=== PATIENT | female | born 1925 | race African-American/Black ===

== ENCOUNTER 2016-08-02 11:55 | Emergency (ER) | payer MEDICARE, MEDICAID ==
--- NOTE | 2016-08-02 12:17 | ER Document Report ---
ED Medical Screen (RME) - General Stated Complaint: SWELLING RIGHT SIDE OF NECK Time seen by provider: 12:16 Mode of Arrival: Ambulatory Information source: Patient Notes: 89-year-old female presents to ED for swollen to the right side of her neck since this morning when she took a shower. Denies any difficulty swallowing or breathing. States the side of her neck hurts and is swollen. States she does not remember ever having this in the past. She does have a problem with her thyroid and takes a thyroid pill not sure which one. I have greeted and performed a rapid initial assessment of this patient. A comprehensive ED assessment and evaluation of the patient, analysis of test results and completion of medical decision making process will be conducted by an additional ED providers. TRAVEL OUTSIDE OF THE [place] IN LAST 30 DAYS: No - Related Data Allergies/Adverse Reactions: levofloxacin [From Levaquin] Allergy (Verified 12/12/12 14:49) Past Medical History - Past Medical History Cardiac Medical History: Reports: Hx Hypercholesterolemia, Hx Hypertension Denies: Hx Atrial Fibrillation, Hx Congestive Heart Failure, Hx Coronary Artery Disease, Hx Heart Attack, Hx Peripheral Vascular Disease, Hx Heart Murmur Pulmonary Medical History: Reports: Hx Tuberculosis Neurological Medical History: Denies: Hx Seizures Endocrine Medical History: Reports: Hx Hypothyroidism Renal/ Medical History: Denies: Hx End Stage Renal Disease GI Medical History: Denies: Hx Crohn's Disease, Hx Gastroesophageal Reflux Disease, Hx Hiatal Hernia, Hx Irritable Bowel, Hx Liver Failure, Hx Ulcer Psychiatric Medical History: Reports: Hx Dementia Past Surgical History: Reports: Hx Bowel Surgery - removal of small bowels, Hx Cholecystectomy, Hx Hysterectomy. Denies: Hx Appendectomy, Hx Section , Hx Colostomy, Hx Coronary Artery Bypass Graft, Hx Gastric Bypass Surgery, Hx Herniorrhaphy, Hx Mastectomy, Hx Pacemaker, Hx Tonsillectomy, Hx Tubal Ligation - Immunizations Hx Diphtheria, Pertussis, Tetanus Vaccination: Yes
--- NOTE | 2016-08-02 13:24 | ER Document Report ---
HPI - HPI Patient complains to provider of: neck swelling Pain Level: Denies Context: patient is an 89 year old female who presents c/o right neck swelling since this AM. this am she showered and noticed that she had pain underneath her right jaw with movement and to palpation. her duaghter is present and giving majority of the information because her mother has dementia. Her daughter states she has had mild cold symptoms over the past couple of days, many sinus drainage and light dry cough. Denies any ear pain, purulent nasal drainage, dysphagia, muffled speech or drooling, productive cough, SOB, dyspnea, chest pain. Tolerating PO, enjoying normal diet. PMH: hypothyroidism, HTN, dementia PSH: daughter unaware but denies any ENT procedures SH: former smoker, no etoh or drug use PCP: Dr. Rodriguez - CARDIOVASCULAR Cardiovascular: DENIES: Chest pain - RESPIRATORY Respiratory: DENIES: Trouble Breathing, Coughing - REPRODUCTIVE Reproductive: REPORTS: Postmenopausal. DENIES: : - MUSCULOSKELETAL Musculoskeletal: REPORTS: Neck Pain. DENIES: Extremity pain, Back Pain, Swelling - DERM Skin Color: Normal Past Medical History - General Information source: Patient - Social History Smoking Status: Unknown if Ever Smoked Chew tobacco use (# tins/day): No Frequency of alcohol use: None Drug Abuse: None Family History: Reviewed & Not Pertinent Patient has suicidal ideation: No Patient has homicidal ideation: No - Past Medical History Cardiac Medical History: Reports: Hx Hypercholesterolemia, Hx Hypertension Denies: Hx Atrial Fibrillation, Hx Congestive Heart Failure, Hx Coronary Artery Disease, Hx Heart Attack, Hx Peripheral Vascular Disease, Hx Heart Murmur Pulmonary Medical History: Reports: Hx Tuberculosis Neurological Medical History: Denies: Hx Seizures Endocrine Medical History: Reports: Hx Hypothyroidism Renal/ Medical History: Denies: Hx End Stage Renal Disease, Hx Peritoneal Dialysis GI Medical History: Denies: Hx Crohn's Disease, Hx Gastroesophageal Reflux Disease, Hx Hiatal Hernia, Hx Irritable Bowel, Hx Liver Failure, Hx Ulcer Psychiatric Medical History: Reports: Hx Dementia Past Surgical History: Reports: Hx Bowel Surgery - removal of small bowels, Hx Cholecystectomy, Hx Hysterectomy. Denies: Hx Appendectomy, Hx Section , Hx Colostomy, Hx Coronary Artery Bypass Graft, Hx Gastric Bypass Surgery, Hx Herniorrhaphy, Hx Mastectomy, Hx Pacemaker, Hx Tonsillectomy, Hx Tubal Ligation - Immunizations Hx Diphtheria, Pertussis, Tetanus Vaccination: Yes Hx Pneumococcal Vaccination: 04/13/12 Vertical Provider Document - CONSTITUTIONAL Agree With Documented VS: Yes Exam Limitations: No Limitations General Appearance: WD/WN, No Apparent Distress - INFECTION CONTROL TRAVEL OUTSIDE OF THE [place] IN LAST 30 DAYS: No - HEENT HEENT: Atraumatic, Normocephalic, PERRLA. negative: Dental Injury, Pharyngeal Exudate, Pharyngeal Tenderness, Pharyngeal Erythema, Tympanic Membrane Red, Tympanic Membrane Bulging - NECK Neck: Supple, Thyroid Normal - abnormal inspection, evidence of fullness of the right neck, no erythema. mild tenderness to palpation but soft, moble LN that is mildly enlarged., Other - RESPIRATORY Respiratory: Breath Sounds Normal, No Respiratory Distress, Chest Non-Tender O2 Sat by Pulse Oximetry: 94 - CARDIOVASCULAR Cardiovascular: Regular Rate, Regular Rhythm, No Murmur Pulses: Normal: Radial - NEURO Level of Consciousness: Awake, Alert, Appropriate Motor/Sensory: No Motor Deficit, No Sensory Deficit Course - Re-evaluation Re-evalutation: 08/02/16 13:54 Patient is a 21-year-old female who is hemodynamically stable, no acute distress , afebrile with evidence of right lymphadenopathy consistent with her history of a recent cold. Educated family to use warm packs as tolerated for comfort and Tylenol for pain and can follow-up with Dr. Rodriguez with her scheduled appointment at the end of the month. - Vital Signs Vital signs: Temp Pulse Resp BP Pulse Ox 98.0 F 60 25 H 115/55 L 94 08/02/16 12:05 08/02/16 12:05 08/02/16 12:05 08/02/16 12:05 08/02/16 12:05 Discharge - Discharge Clinical Impression: Lymphadenopathy of head and neck Condition: Good Disposition: HOME, SELF-CARE Instructions: Lymphadenopathy ([facility]), Acetaminophen Referrals: ZORA RODRIGUEZ MD [ACTIVE STAFF] - Follow up as needed
[2016-08-02] MEDS ORDERED: ACETAMINOPHEN 325 MG TABLET PO ONE (13:33)
[2016-08-02 13:44] VITALS: BP 122/59
== END 2016-08-02 13:55 | disposition home or self-care (01) ==
LOC: ER 11:55
DX: R59.0 Localized enlarged lymph nodes (principal); M54.2 Cervicalgia; F03.90 Unspecified dementia, unspecified severity, without behavioral disturbance, psychotic disturbance, mood disturbance, and anxiety; R05 Cough; J34.89 Other specified disorders of nose and nasal sinuses; I10 Essential (primary) hypertension; Z87.891 Personal history of nicotine dependence; Z86.11 Personal history of tuberculosis
CPT/HCPCS: 99283; A9270

== ENCOUNTER 2016-11-05 17:20 | Inpatient (IN) | payer MEDICARE, MEDICAID ==
[2016-11-05] MEDS ORDERED: IPRATROPIUM/ALBUTEROL 0.5-2.5 MG/3 ML AMPUL NEB ONE ×2 (19:02)
--- NOTE | 2016-11-05 19:03 | ER Document Report ---
ED Medical Screen (RME) - General Chief Complaint: Congestion Stated Complaint: COUGH Mode of Arrival: Wheelchair Information source: Patient Notes: 89-year-old female presents with 4 day duration of cough shortness of breath. Patient denies any fevers denies any previous episodes of pneumonia. I have greeted and performed a rapid initial assessment of this patient. A comprehensive ED assessment and evaluation of the patient, analysis of test results and completion of the medical decision making process will be conducted by additional ED providers. PHYSICAL EXAMINATION: GENERAL: Elderly female no acute distress HEAD: Atraumatic, normocephalic. EYES: Pupils equal round extraocular movements intact, conjunctiva are normal. ENT: Nares patent NECK: Normal range of motion LUNGS: Coarse end expiratory wheezing bilateral lower lobes Musculoskeletal: Normal range of motion NEUROLOGICAL: Normal speech, normal gait. PSYCH: Normal mood, normal affect. SKIN: Warm, Dry, normal turgor, no rashes or lesions noted. TRAVEL OUTSIDE OF THE [place] IN LAST 30 DAYS: No - Related Data Allergies/Adverse Reactions: levofloxacin [From Levaquin] Allergy (Verified 11/05/16 18:51) Past Medical History - Past Medical History Cardiac Medical History: Reports: Hx Hypercholesterolemia, Hx Hypertension Denies: Hx Atrial Fibrillation, Hx Congestive Heart Failure, Hx Coronary Artery Disease, Hx Heart Attack, Hx Peripheral Vascular Disease, Hx Heart Murmur Pulmonary Medical History: Reports: Hx Tuberculosis Neurological Medical History: Denies: Hx Seizures Endocrine Medical History: Reports: Hx Hypothyroidism Renal/ Medical History: Denies: Hx End Stage Renal Disease, Hx Peritoneal Dialysis GI Medical History: Denies: Hx Crohn's Disease, Hx Gastroesophageal Reflux Disease, Hx Hiatal Hernia, Hx Irritable Bowel, Hx Liver Failure, Hx Ulcer Psychiatric Medical History: Reports: Hx Dementia Past Surgical History: Reports: Hx Bowel Surgery - removal of small bowels, Hx Cholecystectomy, Hx Hysterectomy. Denies: Hx Appendectomy, Hx Section , Hx Colostomy, Hx Coronary Artery Bypass Graft, Hx Gastric Bypass Surgery, Hx Herniorrhaphy, Hx Mastectomy, Hx Pacemaker, Hx Tonsillectomy, Hx Tubal Ligation - Immunizations Hx Diphtheria, Pertussis, Tetanus Vaccination: Yes Physical Exam - Vital signs Vitals: Temp Pulse Resp BP Pulse Ox 98.3 F 59 L 20 114/56 L 97 11/05/16 17:47 11/05/16 17:47 11/05/16 17:47 11/05/16 17:47 11/05/16 17:47 Course - Vital Signs Vital signs: Temp Pulse Resp BP Pulse Ox 98.3 F 59 L 20 114/56 L 97 11/05/16 17:47 11/05/16 17:47 11/05/16 17:47 11/05/16 17:47 11/05/16 17:47
[2016-11-05 19:47] LABS: ABSOLUTE BASOPHILS # (AUTO) 0.1 10^3/uL (0.0-0.2); ABSOLUTE EOSINOPHILS # (AUTO) 0.1 10^3/uL (0.0-0.6); ABSOLUTE MONOCYTES (AUTO) 0.8 10^3/uL (0.1-1.4); ABSOLUTE NEUT (AUTO) 5.6 10^3/uL (1.7-8.2); EOSINOPHILS % (AUTO) 1.3 % (0-6); HEMATOCRIT 36.1 % (36.0-47.0); HEMOGLOBIN 11.8 g/dL (12.0-15.5); HGB HCT DIFFERENCE -0.7; LYMPHOCYTES % (AUTO) 13.1 % (13-45); MEAN CORPUSCULAR HEMOGLOBIN 30.4 pg (27.0-33.4); MEAN CORPUSCULAR HGB CONC 32.7 g/dL (32.0-36.0); MEAN CORPUSCULAR VOLUME 93 fl (80-97); MONOCYTES % (AUTO) 10.5 % (3-13); RED BLOOD COUNT 3.88 10^6/uL (3.72-5.28); RED CELL DISTRIBUTION WIDTH 14.2 % (11.5-14.0); SEGMENTED NEUTROPHILS % (AUTO) 74.1 % (42-78); WHITE BLOOD COUNT 7.6 10^3/uL (4.0-10.5)
[2016-11-05 20:01] LABS: ALANINE AMINOTRANSFERASE 22 U/L (9-52); ALBUMIN 3.9 g/dL (3.5-5.0); ALKALINE PHOSPHATASE 58 U/L (38-126); ANION GAP 16 (5-19); ASPARTATE AMINO TRANSFERASE 18 U/L (14-36); BILIRUBIN,DIRECT 0.4 mg/dL (0.0-0.4); BILIRUBIN,TOTAL 0.6 mg/dL (0.2-1.3); BLOOD UREA NITROGEN 18 mg/dL (7-20); CALCIUM 9.1 mg/dL (8.4-10.2); CARBON DIOXIDE 20 mmol/L (22-30); CHLORIDE 109 mmol/L (98-107); CREATININE RESULT 1.19 mg/dL (0.52-1.25); GLUCOSE 97 mg/dL (75-110); POTASSIUM 3.9 mmol/L (3.6-5.0); TOTAL PROTEIN 7.5 g/dL (6.3-8.2)
[2016-11-05] MEDS ORDERED: CEFTRIAXONE RTU 1 GM/D5W 50 ML IV ONE (21:40)
[2016-11-05] MEDS ORDERED: AZITHROMYCIN INJ 500 MG VIAL IV ONE (21:40)
--- NOTE | 2016-11-05 21:43 | ER Document Report ---
ED Respiratory Problem - General Chief Complaint: Congestion Stated Complaint: COUGH Time seen by provider: 21:42 Mode of Arrival: Wheelchair Information source: Patient TRAVEL OUTSIDE OF THE [place] IN LAST 30 DAYS: No - HPI Patient complains to provider of: Cough, Short of breath Onset: Other - 4 days Duration: Worse/persistent Short of Breath: Moderate Chest pain/discomfort: Tightness Cough: Productive Sputum amount: Small Sputum color: Yellow Sputum consistency: Mucoid Associated symptoms: Congestion, Cough, Short of breath Notes: Patient is an 89-year-old female who presents to the emergency room complaining of cough cold congestion 4 days with difficulty breathing that's been worsening , she has not had a fever at home, cough is productive of a small amount of yellowish mucoid, she has not been on any antibiotics recently, no recent long distance travel - Related Data Allergies/Adverse Reactions: levofloxacin [From Levaquin] Allergy (Verified 11/05/16 18:51) Past Medical History - General Information source: Patient - Social History Smoking Status: Unknown if Ever Smoked Family History: Reviewed & Not Pertinent Patient has suicidal ideation: No Patient has homicidal ideation: No - Past Medical History Cardiac Medical History: Reports: Hx Hypercholesterolemia, Hx Hypertension Denies: Hx Atrial Fibrillation, Hx Congestive Heart Failure, Hx Coronary Artery Disease, Hx Heart Attack, Hx Peripheral Vascular Disease, Hx Heart Murmur Pulmonary Medical History: Reports: Hx Tuberculosis Neurological Medical History: Denies: Hx Seizures Endocrine Medical History: Reports: Hx Hypothyroidism Renal/ Medical History: Denies: Hx End Stage Renal Disease, Hx Peritoneal Dialysis GI Medical History: Denies: Hx Crohn's Disease, Hx Gastroesophageal Reflux Disease, Hx Hiatal Hernia, Hx Irritable Bowel, Hx Liver Failure, Hx Ulcer Psychiatric Medical History: Reports: Hx Dementia Past Surgical History: Reports: Hx Bowel Surgery - removal of small bowels, Hx Cholecystectomy, Hx Hysterectomy. Denies: Hx Appendectomy, Hx Section , Hx Colostomy, Hx Coronary Artery Bypass Graft, Hx Gastric Bypass Surgery, Hx Herniorrhaphy, Hx Mastectomy, Hx Pacemaker, Hx Tonsillectomy, Hx Tubal Ligation - Immunizations Hx Diphtheria, Pertussis, Tetanus Vaccination: Yes Hx Pneumococcal Vaccination: 04/13/12 Review of Systems - Review of Systems Constitutional: No symptoms reported EENT: No symptoms reported Cardiovascular: No symptoms reported Respiratory: See HPI Gastrointestinal: No symptoms reported Genitourinary: No symptoms reported Female Genitourinary: No symptoms reported Musculoskeletal: No symptoms reported Skin: No symptoms reported Hematologic/Lymphatic: No symptoms reported Neurological/Psychological: No symptoms reported -: Yes All other systems reviewed and negative Physical Exam - Vital signs Vitals: Temp Pulse Resp BP Pulse Ox 98.3 F 59 L 20 114/56 L 97 11/05/16 17:47 11/05/16 17:47 11/05/16 17:47 11/05/16 17:47 11/05/16 17:47 Interpretation: Bradycardic - General General appearance: Alert In distress: None - HEENT Head: Normocephalic, Atraumatic Eyes: Normal Pupils: PERRL Mouth/Lips: Normal Mucous membranes: Normal Pharynx: Normal - Respiratory Respiratory status: No respiratory distress Chest status: Nontender Breath sounds: Productive cough, Rhonchi, Wheezing Chest palpation: Normal - Cardiovascular Rhythm: Regular Heart sounds: Normal auscultation Murmur: No - Abdominal Inspection: Normal Distension: No distension Bowel sounds: Normal Tenderness: Nontender Organomegaly: No organomegaly - Back Back: Normal, Nontender - Extremities General upper extremity: Normal inspection, Nontender, Normal color, Normal ROM , Normal temperature General lower extremity: Normal inspection, Nontender, Normal color, Normal ROM , Normal temperature, Normal weight bearing. No: Anayeli's sign - Neurological Neuro grossly intact: Yes Cognition: Normal Orientation: AAOx4 [place] Coma Scale Eye Opening: Spontaneous [place] Coma Scale Verbal: Oriented [place] Coma Scale Motor: Obeys Commands [place] Coma Scale Total: 15 Speech: Normal Motor strength normal: LUE, RUE, LLE, RLE Sensory: Normal - Psychological Associated symptoms: Normal affect, Normal mood - Skin Skin Temperature: Warm Skin Moisture: Dry Skin Color: Normal Course - Re-evaluation Re-evalutation: 11/05/16 21:44 Patient discussed with primary care provider, Dr. Bermudez who agrees with admission - Vital Signs Vital signs: Temp Pulse Resp BP Pulse Ox 98.3 F 59 L 20 114/56 L 97 11/05/16 17:47 11/05/16 17:47 11/05/16 17:47 11/05/16 17:47 11/05/16 17:47 - Laboratory Result Diagrams: 11/05/16 19:15 11/05/16 19:15 Laboratory results interpreted by me: 11/05/16 11/05/16 19:15 19:15 Hgb 11.8 L RDW 14.2 H Chloride 109 H Carbon Dioxide 20 L Est GFR ( Amer) 52 L Est GFR (Non-Af Amer) 43 L - Diagnostic Test Radiology reviewed: Image reviewed, Reports reviewed - EKG Interpretation by Me EKG shows normal: Sinus rhythm Rate: Normal Rhythm: NSR - Transfer of Care Care transferred to following provider: Dr. Bermudez Discharge - Discharge Clinical Impression: Pneumonia Qualifiers: Pneumonia type: due to unspecified organism Laterality: right Lung location: lower lobe of lung Qualified Code(s): J18.1 - Lobar pneumonia, unspecified organism Condition: Stable Disposition: ADMITTED INPATIENT Admitting Provider: Aidan Unit Admitted: Medical Floor
--- NOTE | 2016-11-05 22:17 | EKG REPORT ---
SEVERITY:- ABNORMAL ECG - SINUS RHYTHM ABNRM R PROG, CONSIDER ASMI OR LEAD PLACEMENT NONSPECIFIC T ABNORMALITIES, ANT-LAT LEADS : Confirmed by: Clifford Lo 05-Nov-2016 22:16:26
[2016-11-06] MEDS ORDERED: ACETAMINOPHEN 325 MG TABLET PO PRN (07:57)
[2016-11-06] MEDS ORDERED: GUAIFENESIN SYRP 200 MG/10 ML UDC PO PRN (07:57)
[2016-11-06] MEDS ORDERED: DONEPEZIL HCL 5 MG TABLET PO SCH (10:00)
[2016-11-06] MEDS ORDERED: DONEPEZIL HCL 10 MG PO SCH (10:00)
[2016-11-06] MEDS ORDERED: (PENDING PHARMACY ID) (Warfarin Sodium 3 MG) PO SCH (10:00)
[2016-11-06] MEDS ORDERED: METOPROLOL TARTRATE 25 MG TABLET PO SCH (10:00)
[2016-11-06] MEDS: LANSOPRAZOLE 30 MG TAB.RAP.DR PO SCH (11:47)
[2016-11-06] MEDS: NORMAL SALINE 1000 ML 1,000 ML IV PRN (11:49)
[2016-11-06] MEDS: LEVOTHYROXINE SODIUM 0.15 MG TABLET PO SCH (11:52)
[2016-11-06] MEDS: METOPROLOL TARTRATE 25 MG TABLET PO SCH ×2 (11:55→22:26)
[2016-11-06] MEDS: NIFEDIPINE 30 MG TAB.ER.24 PO SCH ×2 (11:56→22:25)
[2016-11-06] MEDS: AZITHROMYCIN 500 MG in DEXTROSE 5%-WATER 250 ML IV SCH (12:04)
[2016-11-06] MEDS: CEFTRIAXONE 1 GM/D5W RTU 1 GM/50 ML RTUPB IV SCH (13:16)
[2016-11-06] MEDS: ALBUTEROL SULFATE 0.083% NEB 2.5 MG/3 ML AMPUL NEB PRN ×2 (17:55→21:05)
--- NOTE | 2016-11-06 19:23 | PDOC H&P ---
History of Present Illness Admission Date/PCP: 11/06/16 07:50 DUDLEY CAN Patient complains of: Cough and difficulty with breathing History of Present Illness: LEXUS HELMS is a 89 year old female known to my practice who was brought by family to ED due to worsening productive cough, difficulty with breathing and chest congestion as per daughter at bedside. Patient do have history of dementia but remain fairly appropriate in simple responses. Family reported onset of her symptoms with cough and chest congestion about 4 days prior to presentation. Patient reported associated chest discomfort described as intermittent tightness in her chest. There was associated audible wheezing as per daughter's report. Daughter reported cough that has been productive of yellow mucoid sputum and noted streak of blood in phlegm prior to coming to the ED. There is no definite fever from measured temperature but daughter reported that patient has been persistently chill more than usual at home, requesting for more cover clothing. No reported nausea or vomiting. Her appetite and p.o intake remain fairly satisfactory. Family denied any similar symptoms in any family member or recent travel. Past Medical History Cardiac Medical History: Reports: Hyperlipidema, Hypertension Denies: Atrial Fibrillation, Congestive Heart Failure, Coronary Artery Disease, Myocardial Infarction, Peripheral Vascular Disease, Heart Murmur Pulmonary Medical History: Reports: Tuberculosis Neurological Medical History: Denies: Seizures Endocrine Medical History: Reports: Hypothyroidism Renal/ Medical History: Denies: End Stage Renal Disease GI Medical History: Denies: Crohn's Disease, Gastroesophageal Reflux Disease, Hiatal Hernia Psychiatric Medical History: Reports: Dementia Past Surgical History Past Surgical History: Reports: Cholecystectomy, Hysterectomy Denies: Appendectomy, Section, Colostomy, Coronary Artery Bypass Graft, Gastric Bypass Surgery, Herniorrhaphy, Mastectomy, Pacemaker, Tonsillectomy, Tubal Ligation Social History Smoking Status: Never Smoker Frequency of Alcohol Use: None Hx Recreational Drug Use: No Drugs: None Hx Prescription Drug Abuse: No - Advance Directive Resuscitation Status: Full Code Family History Family History: Reviewed & Not Pertinent Parental Family History Reviewed: Yes Children Family History Reviewed: Yes Sibling(s) Family History Reviewed.: Yes Medication/Allergy Home Medications: Metoprolol Tartrate [Lopressor 25 Mg Tablet] 12.5 mg PO BID 12/31/11 Nifedipine [Procardia XL 30 mg Tablet] 60 mg PO Q12 #0 tab.er.[id number] 11/12/12 Simvastatin 20 mg PO QHS 12/12/12 Warfarin Sodium [Coumadin 3 Mg Tablet] 3 mg PO MOWEFR 12/12/12 Donepezil HCl [Aricept] 10 mg PO DAILY 11/06/16 Levothyroxine Sodium [Synthroid 0.1 mg Tablet] 0.1 mg PO QAM 11/06/16 Warfarin Sodium [Coumadin 3 mg Tablet] 1.5 mg PO SUTUTHSA 11/06/16 Allergies/Adverse Reactions: levofloxacin [From Levaquin] Allergy (Verified 11/05/16 18:51) Review of Systems Constitutional: PRESENT: chills, weakness. ABSENT: as per HPI, anorexia, fatigue, fever(s), headache(s), night sweats, weight gain, weight loss, other Eyes: ABSENT: visual disturbances Ears: ABSENT: hearing changes Nose, Mouth, and Throat: ABSENT: as per HPI, headache(s), mouth pain, sore throat, vertigo, other Cardiovascular: ABSENT: as per HPI, chest pain, dyspnea on exertion, edema, orthropnea, palpitations, other Respiratory: PRESENT: cough, dyspnea, sputum Gastrointestinal: ABSENT: abdominal pain, constipation, diarrhea, hematemesis, hematochezia, nausea, vomiting Genitourinary: ABSENT: as per HPI, difficulty urinating, dysuria, hematuria, nocturia, other Musculoskeletal: ABSENT: as per HPI, back pain, deformity, joint swelling, muscle weakness, other Integumentary: ABSENT: as per HPI, diaphoresis, erythema, lesions, pruritus, rash, wounds, other Neurological: PRESENT: memory loss. ABSENT: as per HPI, abnormal gait, abnormal movements, abnormal speech, confusion, convulsions, dizziness, focal weakness, frequent falls, lack of coordination, numbness, paresthesias, restless legs, syncope, tingling, tremor(s), vertigo, weakness, other Psychiatric: ABSENT: anxiety, depression, homidical ideation, suicidal ideation Endocrine: ABSENT: cold intolerance, heat intolerance, polydipsia, polyuria Hematologic/Lymphatic: ABSENT: easy bleeding, easy bruising, lymphadenopathy Allergic/Immunologic: ABSENT: as per HPI, seasonal rhinorrhea, other Physical Exam Vital Signs: Temp Pulse Resp BP Pulse Ox 97.9 F 61 20 127/61 H 97 11/06/16 15:36 11/06/16 16:41 11/06/16 15:36 11/06/16 15:36 11/06/16 15:36 General appearance: PRESENT: no acute distress, cooperative, hard of hearing Head exam: PRESENT: atraumatic, normocephalic Eye exam: PRESENT: conjunctiva pink, EOMI, PERRLA. ABSENT: scleral icterus Ear exam: PRESENT: normal external ear exam Mouth exam: PRESENT: moist, tongue midline Teeth exam: ABSENT: dental caries, dental tenderness, edentulous, poor dentation , other Throat exam: ABSENT: post pharyngeal erythema, tonsillar erythema, tonsillar exudate, tonsillogmegaly, other Neck exam: PRESENT: full ROM. ABSENT: carotid bruit, JVD, lymphadenopathy, thyromegaly Respiratory exam: PRESENT: crackles, decreased breath sounds - bilaterally, rhonchi - very minimal expiratory phase Cardiovascular exam: PRESENT: RRR. ABSENT: diastolic murmur, rubs, systolic murmur Pulses: PRESENT: normal dorsalis pedis pul, +2 pedal pulses bilateral Vascular exam: PRESENT: normal capillary refill GI/Abdominal exam: PRESENT: normal bowel sounds, soft. ABSENT: distended, guarding, mass, organolmegaly, rebound, tenderness Rectal exam: PRESENT: deferred Extremities exam: PRESENT: full ROM Musculoskeletal exam: PRESENT: ambulatory - prior to her current illness, deformity - related to multiple joints involvement with arthritis Neurological exam: PRESENT: alert, awake, oriented to person, oriented to place , CN II-XII grossly intact. ABSENT: motor sensory deficit Psychiatric exam: PRESENT: appropriate affect, normal mood. ABSENT: homicidal ideation, suicidal ideation Skin exam: PRESENT: dry, intact, warm. ABSENT: cyanosis, rash Results Impressions: Chest X-Ray 11/05/16 19:02 IMPRESSION: New patchy airspace opacity in the right lung base. Assessment & Plan - Diagnosis (1) Community acquired pneumonia Is this a current diagnosis for this admission?: YesPlan: See admitting physician orders. (2) HTN (hypertension) Qualifiers: Hypertension type: essential hypertension Qualified Code(s): I10 - Essential (primary) hypertension Is this a current diagnosis for this admission?: YesPlan: See admitting physician orders. (3) HLD (hyperlipidemia) Qualifiers: Hyperlipidemia type: pure hypercholesterolemia Qualified Code(s): E78.00 - Pure hypercholesterolemia, unspecified; E78.0 - Pure hypercholesterolemia Is this a current diagnosis for this admission?: YesPlan: See admitting physician orders. (4) Senile dementia of Alzheimer's type Is this a current diagnosis for this admission?: YesPlan: See admitting physician orders. (6) Osteoarthritis involving multiple joints on both sides of body Is this a current diagnosis for this admission?: YesPlan: See admitting physician orders. - Time Time Spent: 50 to 70 Minutes Medications reviewed and adjusted accordingly: Yes Anticipated discharge: Home with Homehealth - Inpatient Certification Medical Necessity: Need Close Monitoring Due to Risk of Patient Decompensation, Need For IV Fluids, Need For Continuous Telemetry Monitoring, Need for Nebulizer Therapy and Monitoring of Response, Need for Pain Control, Risk of Complication if Not Cared For in Hospital Post Hospital Care: D/C Bias Binding Cutter Documentation - Plan Summary Plan Summary: See admitting physician orders.
[2016-11-06 21:05] LABS: APPEARANCE,URINE SLIGHTLY-CLOUDY; BILIRUBIN,URINE NEGATIVE (NEGATIVE); GLUCOSE, URINE NEGATIVE (NEGATIVE); KETONES,URINE NEGATIVE (NEGATIVE); LEUKOCYTE ESTERASE,URINE SMALL (NEGATIVE); NITRITE,URINE NEGATIVE (NEGATIVE); PROTEIN,URINE NEGATIVE (NEGATIVE); URINE SPECIFIC GRAVITY 1.004; UROBILINOGEN,URINE NEGATIVE mg/dL (<2.0)
[2016-11-06] MEDS ORDERED: (PENDING PHARMACY ID) (Simvastatin [Simvastatin] 20 MG) PO SCH (22:00)
[2016-11-06] MEDS ORDERED: WARFARIN SODIUM 3 MG TABLET PO SCH (22:00)
[2016-11-06] MEDS: SIMVASTATIN 10 MG TABLET PO SCH (22:25)
[2016-11-06] MEDS: TRAZODONE HCL 50 MG TABLET PO PRN (22:31)
[2016-11-07] MEDS: LANSOPRAZOLE 30 MG TAB.RAP.DR PO SCH (05:15)
[2016-11-07] MEDS: NORMAL SALINE 1000 ML 1,000 ML IV PRN (05:16)
[2016-11-07 05:22] LABS: ABSOLUTE BASOPHILS # (AUTO) 0.1 10^3/uL (0.0-0.2); ABSOLUTE EOSINOPHILS # (AUTO) 0.1 10^3/uL (0.0-0.6); ABSOLUTE MONOCYTES (AUTO) 0.8 10^3/uL (0.1-1.4); ABSOLUTE NEUT (AUTO) 5.7 10^3/uL (1.7-8.2); BASOPHILS % (AUTO) 1.1 % (0-2); EOSINOPHILS % (AUTO) 0.7 % (0-6); HEMATOCRIT 33.7 % (36.0-47.0); HEMOGLOBIN 11.1 g/dL (12.0-15.5); HGB HCT DIFFERENCE -0.4; LYMPHOCYTES % (AUTO) 13.1 % (13-45); MEAN CORPUSCULAR HEMOGLOBIN 30.2 pg (27.0-33.4); MEAN CORPUSCULAR HGB CONC 32.8 g/dL (32.0-36.0); MEAN CORPUSCULAR VOLUME 92 fl (80-97); MONOCYTES % (AUTO) 10.5 % (3-13); RED BLOOD COUNT 3.67 10^6/uL (3.72-5.28); RED CELL DISTRIBUTION WIDTH 14.1 % (11.5-14.0); SEGMENTED NEUTROPHILS % (AUTO) 74.6 % (42-78); WHITE BLOOD COUNT 7.6 10^3/uL (4.0-10.5)
[2016-11-07 05:27] LABS: PROTHROMBIN TIME 20.4 SEC (11.4-15.4)
[2016-11-07 05:39] LABS: ALANINE AMINOTRANSFERASE 24 U/L (9-52); ALBUMIN 3.5 g/dL (3.5-5.0); ALKALINE PHOSPHATASE 56 U/L (38-126); ANION GAP 14 (5-19); ASPARTATE AMINO TRANSFERASE 18 U/L (14-36); BILIRUBIN,DIRECT 0.4 mg/dL (0.0-0.4); BILIRUBIN,TOTAL 0.8 mg/dL (0.2-1.3); BLOOD UREA NITROGEN 9 mg/dL (7-20); CALCIUM 8.6 mg/dL (8.4-10.2); CARBON DIOXIDE 21 mmol/L (22-30); CHLORIDE 110 mmol/L (98-107); CREATININE RESULT 0.93 mg/dL (0.52-1.25); GLUCOSE 111 mg/dL (75-110); POTASSIUM 3.5 mmol/L (3.6-5.0); SODIUM 145.3 mmol/L (137-145); TOTAL PROTEIN 7.2 g/dL (6.3-8.2)
[2016-11-07] MEDS ORDERED: WARFARIN SODIUM 1.5 MG PO SCH (07:30)
[2016-11-07] MEDS ORDERED: LEVOTHYROXINE SODIUM 0.1 MG TABLET PO SCH (08:00)
[2016-11-07] MEDS ORDERED: POTASSIUM CHLORIDE 10 MEQ TABLET.SA PO SCH (08:00)
[2016-11-07] MEDS ORDERED: (PENDING PHARMACY ID) (Donepezil Hcl [Aricept] 10 MG) PO SCH (10:00)
[2016-11-07] MEDS: METOPROLOL TARTRATE 25 MG TABLET PO SCH ×2 (10:23→22:08)
[2016-11-07] MEDS: LEVOTHYROXINE SODIUM 0.15 MG TABLET PO SCH (10:23)
[2016-11-07] MEDS: NIFEDIPINE 30 MG TAB.ER.24 PO SCH ×2 (10:24→22:08)
[2016-11-07] MEDS: DONEPEZIL HCL 5 MG TABLET PO SCH (10:24)
[2016-11-07] MEDS: AZITHROMYCIN 500 MG in DEXTROSE 5%-WATER 250 ML IV SCH (11:14)
[2016-11-07] MEDS ORDERED: SIMETHICONE 80 MG TAB.CHEW PO PRN (12:53)
[2016-11-07] MEDS ORDERED: MAGNESIUM SULFATE/D5W 100 ML IV SCH (13:15)
[2016-11-07] MEDS ORDERED: BISACODYL 10 MG SUPP.RECT PR ONE ×2 (13:30→22:00)
[2016-11-07] MEDS: CEFTRIAXONE 1 GM/D5W RTU 1 GM/50 ML RTUPB IV SCH (14:32)
[2016-11-07] MEDS: ALBUTEROL SULFATE 0.083% NEB 2.5 MG/3 ML AMPUL NEB PRN (14:39)
[2016-11-07] MEDS ORDERED: POTASSIUM CHLORIDE 10 MEQ TABLET.SA PO ONE (15:00)
--- NOTE | 2016-11-07 18:23 | PDOC PROGRESS REPORT ---
Subjective Progress Note for:: 11/07/16 Subjective:: Patient had episode of rapid development of abdominal distension earlier today necessitating request for acute abdominal series that revealed small bowel and sigmoid colon gaseous distension. She subsequently had satisfactory bowel movement following administration of Dulcolax and some relief of abdominal pain with administration of simethicone. No nausea or vomiting. She denied any chest pain or difficulty with breathing. No fever or chills. Remain on IV Azithromycin and Ceftriaxone coverage. Physical Exam Vital Signs: Temp Pulse Resp BP Pulse Ox 97.7 F 78 30 H 140/68 H 97 11/07/16 16:33 11/07/16 16:33 11/07/16 16:33 11/07/16 16:33 11/07/16 16:33 Intake & Output 11/06/16 11/07/16 11/08/16 06:59 06:59 06:59 Intake Total 765 260 Output Total 200 200 Balance 565 60 General appearance: PRESENT: cooperative, mild distress - from elicite abdominal pain with examination. Head exam: PRESENT: atraumatic, normocephalic Eye exam: PRESENT: conjunctiva pink, EOMI, PERRLA. ABSENT: scleral icterus Mouth exam: PRESENT: moist, tongue midline Respiratory exam: PRESENT: clear to auscultation abigail, decreased breath sounds - at lung bases Cardiovascular exam: PRESENT: RRR. ABSENT: diastolic murmur, rubs, systolic murmur GI/Abdominal exam: PRESENT: distended, normal bowel sounds, tenderness - diffusely Rectal exam: PRESENT: hemorrhoids - external Extremities exam: PRESENT: full ROM Musculoskeletal exam: PRESENT: deformity Neurological exam: PRESENT: alert, awake, CN II-XII grossly intact, motor sensory deficit Psychiatric exam: PRESENT: appropriate affect, normal mood. ABSENT: homicidal ideation, suicidal ideation Results Laboratory Results: 11/07/16 05:07 11/07/16 05:07 11/06/16 11/07/16 11/07/16 20:34 05:07 05:07 WBC 7.6 RBC 3.67 L Hgb 11.1 L Hct 33.7 L MCV 92 MCH 30.2 MCHC 32.8 RDW 14.1 H Plt Count 221 Seg Neutrophils % 74.6 Lymphocytes % 13.1 Monocytes % 10.5 Eosinophils % 0.7 Basophils % 1.1 Absolute Neutrophils 5.7 Absolute Lymphocytes 1.0 Absolute Monocytes 0.8 Absolute Eosinophils 0.1 Absolute Basophils 0.1 Sodium 145.3 H Potassium 3.5 L Chloride 110 H Carbon Dioxide 21 L Anion Gap 14 BUN 9 Creatinine 0.93 Est GFR ( Amer) > 60 Est GFR (Non-Af Amer) 57 L Glucose 111 H Calcium 8.6 Magnesium Total Bilirubin 0.8 AST 18 ALT 24 Alkaline Phosphatase 56 Total Protein 7.2 Albumin 3.5 Urine Color STRAW Urine Appearance SLIGHTLY-CLOUDY Urine pH 5.0 Ur Specific [place] 1.004 Urine Protein NEGATIVE Urine Glucose (UA) NEGATIVE Urine Ketones NEGATIVE Urine Blood SMALL H Urine Nitrite NEGATIVE Ur Leukocyte Esterase SMALL H Urine WBC (Auto) 3 Urine RBC (Auto) 0 11/07/16 05:07 WBC RBC Hgb Hct MCV MCH MCHC RDW Plt Count Seg Neutrophils % Lymphocytes % Monocytes % Eosinophils % Basophils % Absolute Neutrophils Absolute Lymphocytes Absolute Monocytes Absolute Eosinophils Absolute Basophils Sodium Potassium Chloride Carbon Dioxide Anion Gap BUN Creatinine Est GFR ( Amer) Est GFR (Non-Af Amer) Glucose Calcium Magnesium 1.5 L Total Bilirubin AST ALT Alkaline Phosphatase Total Protein Albumin Urine Color Urine Appearance Urine pH Ur Specific [place] Urine Protein Urine Glucose (UA) Urine Ketones Urine Blood Urine Nitrite Ur Leukocyte Esterase Urine WBC (Auto) Urine RBC (Auto) Impressions: Chest X-Ray 11/05/16 19:02 IMPRESSION: New patchy airspace opacity in the right lung base. Acute Abdomen Series 11/07/16 00:00 IMPRESSION: There is gaseous distention of the sigmoid colon. The appearance is not classic for sigmoid volvulus but that is in the differential. This may represent ileus. Assessment & Plan - Diagnosis (1) Community acquired pneumonia Is this a current diagnosis for this admission?: YesPlan: Continue IV Ceftriaxone and Azithromycin coverage. See attending physician orders. (2) HTN (hypertension) Qualifiers: Hypertension type: essential hypertension Qualified Code(s): I10 - Essential (primary) hypertension Is this a current diagnosis for this admission?: YesPlan: See attending physician orders. (3) HLD (hyperlipidemia) Qualifiers: Hyperlipidemia type: pure hypercholesterolemia Qualified Code(s): E78.00 - Pure hypercholesterolemia, unspecified; E78.0 - Pure hypercholesterolemia Is this a current diagnosis for this admission?: YesPlan: See attending physician orders. (4) Senile dementia of Alzheimer's type Is this a current diagnosis for this admission?: YesPlan: See attending physician orders. (5) Hypothyroidism (acquired) Plan: See attending physician orders. (6) Osteoarthritis involving multiple joints on both sides of body Is this a current diagnosis for this admission?: YesPlan: See attending physician orders. (7) Hypokalemia due to inadequate potassium intake Is this a current diagnosis for this admission?: YesPlan: See attending physician orders. (8) Hypomagnesemia Is this a current diagnosis for this admission?: YesPlan: See attending physician orders. (9) Abdominal distension (gaseous) Is this a current diagnosis for this admission?: NoPlan: Patient will remain on Simethicone administration and repeat Dulcolax suppository tonight. In view of her dementia limitation and Coumadin therapy I will avoid NGT placement and manage her gaseous distension conservatively. - Time Time Spent with patient: 35 or more minutes Medications reviewed and adjusted accordingly: Yes Anticipated discharge: Home with Homehealth Within: Other - Inpatient Certification Based on my medical assessment, after consideration of the patient's comorbidities, presenting symptoms, or acuity I expect that the services needed warrant INPATIENT care.: Yes I certify that my determination is in accordance with my understanding of Medicare's requirements for reasonable and necessary INPATIENT services [42 CFR 412.3e].: Yes Medical Necessity: Need Close Monitoring Due to Risk of Patient Decompensation, Need For IV Fluids, Need For Continuous Telemetry Monitoring, Need for IV Antibiotics, Risk of Complication if Not Cared For in Hospital Post Hospital Care: D/C Property Management Accountant Documentation - Plan Summary Plan Summary: See attending physician orders. Repeat CBC with diff and BMP, Magnesium in am.
[2016-11-07] MEDS: SIMETHICONE 80 MG TAB.CHEW PO SCH (21:51)
[2016-11-07] MEDS ORDERED: WARFARIN SODIUM 3 MG TABLET PO SCH (22:00)
[2016-11-07] MEDS: SIMVASTATIN 10 MG TABLET PO SCH (22:08)
[2016-11-07] MEDS: WARFARIN SODIUM 3 MG TABLET PO SCH (22:08)
[2016-11-08] MEDS: SIMETHICONE 80 MG TAB.CHEW PO SCH ×4 (00:03→17:57)
[2016-11-08 05:56] LABS: ABSOLUTE EOSINOPHILS # (AUTO) 0.1 10^3/uL (0.0-0.6); ABSOLUTE LYMPHOCYTES (AUTO) 0.6 10^3/uL (0.5-4.7); ABSOLUTE MONOCYTES (AUTO) 0.6 10^3/uL (0.1-1.4); ABSOLUTE NEUT (AUTO) 5.6 10^3/uL (1.7-8.2); BASOPHILS % (AUTO) 0.7 % (0-2); EOSINOPHILS % (AUTO) 0.8 % (0-6); HEMATOCRIT 34.4 % (36.0-47.0); HEMOGLOBIN 11.2 g/dL (12.0-15.5); HGB HCT DIFFERENCE -0.8; LYMPHOCYTES % (AUTO) 9.1 % (13-45); MEAN CORPUSCULAR HEMOGLOBIN 30.3 pg (27.0-33.4); MEAN CORPUSCULAR HGB CONC 32.6 g/dL (32.0-36.0); MEAN CORPUSCULAR VOLUME 93 fl (80-97); MONOCYTES % (AUTO) 9.3 % (3-13); RED CELL DISTRIBUTION WIDTH 14.1 % (11.5-14.0); SEGMENTED NEUTROPHILS % (AUTO) 80.1 % (42-78); WHITE BLOOD COUNT 6.9 10^3/uL (4.0-10.5)
[2016-11-08] MEDS: LANSOPRAZOLE 30 MG TAB.RAP.DR PO SCH (05:56)
[2016-11-08 06:07] LABS: PROTHROMBIN TIME 22.3 SEC (11.4-15.4)
[2016-11-08 06:37] LABS: ANION GAP 13 (5-19); BLOOD UREA NITROGEN 8 mg/dL (7-20); CALCIUM 8.5 mg/dL (8.4-10.2); CARBON DIOXIDE 20 mmol/L (22-30); CHLORIDE 110 mmol/L (98-107); CREATININE RESULT 0.97 mg/dL (0.52-1.25); GLUCOSE 98 mg/dL (75-110); MAGNESIUM 1.9 mg/dL (1.6-2.3); POTASSIUM 4.2 mmol/L (3.6-5.0); SODIUM 142.9 mmol/L (137-145)
[2016-11-08] MEDS: ALBUTEROL SULFATE 0.083% NEB 2.5 MG/3 ML AMPUL NEB PRN ×3 (09:33→22:18)
[2016-11-08] MEDS: LEVOTHYROXINE SODIUM 0.15 MG TABLET PO SCH (10:11)
[2016-11-08] MEDS: NIFEDIPINE 30 MG TAB.ER.24 PO SCH ×2 (10:11→21:43)
[2016-11-08] MEDS: AZITHROMYCIN 250 MG TABLET PO SCH (10:11)
[2016-11-08] MEDS: METOPROLOL TARTRATE 25 MG TABLET PO SCH ×2 (10:12→21:42)
[2016-11-08] MEDS: DONEPEZIL HCL 5 MG TABLET PO SCH (10:12)
[2016-11-08] MEDS: CEFTRIAXONE 1 GM/D5W RTU 1 GM/50 ML RTUPB IV SCH (12:24)
[2016-11-08] MEDS ORDERED: NORMAL SALINE 10 ML SDV (AFTER EACH USE) IV PRN (13:20)
--- NOTE | 2016-11-08 18:40 | PDOC PROGRESS REPORT ---
Subjective Progress Note for:: 11/08/16 Subjective:: There is some improvement in her abdominal distension with several episodes of bowel movement since last clinical evaluation. Less complain of abdominal pain as per family at bedside. P.O intake remain a challenge. No nausea or vomiting. No noted chest pain or difficulty with breathing. No fever or chills. Remain on IV Azithromycin and Ceftriaxone coverage. She is schedule for PICC line establishment later this morning. Physical Exam Vital Signs: Temp Pulse Resp BP Pulse Ox 98.1 F 76 16 128/49 H 94 11/08/16 07:30 11/08/16 07:30 11/08/16 07:30 11/08/16 07:30 11/08/16 07:30 Intake & Output 11/07/16 11/08/16 11/09/16 06:59 06:59 06:59 Intake Total 765 1860 Output Total 200 200 Balance 565 1660 Physical Exam: General appearance: PRESENT: cooperative, mild distress - from elicite abdominal pain with examination. Head exam: PRESENT: atraumatic, normocephalic Eye exam: PRESENT: conjunctiva pink, EOMI, PERRLA. ABSENT: scleral icterus Mouth exam: PRESENT: moist, tongue midline Respiratory exam: PRESENT: clear to auscultation abigail, decreased breath sounds - at lung bases Cardiovascular exam: PRESENT: RRR. ABSENT: diastolic murmur, rubs, systolic murmur GI/Abdominal exam: PRESENT: distended, normal bowel sounds, tenderness - diffusely Rectal exam: PRESENT: hemorrhoids - external Extremities exam: PRESENT: full ROM Musculoskeletal exam: PRESENT: deformity Neurological exam: PRESENT: alert, awake, CN II-XII grossly intact, motor sensory deficit Psychiatric exam: PRESENT: appropriate affect, normal mood. ABSENT: homicidal ideation, suicidal ideation Results Laboratory Results: 11/08/16 05:39 11/08/16 05:39 11/07/16 11/08/16 11/08/16 05:07 05:39 05:39 WBC 6.9 RBC 3.70 L Hgb 11.2 L Hct 34.4 L MCV 93 MCH 30.3 MCHC 32.6 RDW 14.1 H Plt Count 228 Seg Neutrophils % 80.1 H Lymphocytes % 9.1 L Monocytes % 9.3 Eosinophils % 0.8 Basophils % 0.7 Absolute Neutrophils 5.6 Absolute Lymphocytes 0.6 Absolute Monocytes 0.6 Absolute Eosinophils 0.1 Absolute Basophils 0.0 Sodium 142.9 Potassium 4.2 Chloride 110 H Carbon Dioxide 20 L Anion Gap 13 BUN 8 Creatinine 0.97 Est GFR ( Amer) > 60 Est GFR (Non-Af Amer) 54 L Glucose 98 Calcium 8.5 Magnesium 1.5 L 1.9 11/06/16 11:06 Sputum Gram Stain - Final 11/06/16 11:06 Sputum Sputum Culture - Final NORMAL ADI Impressions: Chest X-Ray 11/05/16 19:02 IMPRESSION: New patchy airspace opacity in the right lung base. Acute Abdomen Series 11/07/16 00:00 IMPRESSION: There is gaseous distention of the sigmoid colon. The appearance is not classic for sigmoid volvulus but that is in the differential. This may represent ileus. Assessment & Plan - Diagnosis (1) Community acquired pneumonia Is this a current diagnosis for this admission?: YesPlan: Continue IV Ceftriaxone and Azithromycin coverage. See attending physician orders. (2) HTN (hypertension) Qualifiers: Hypertension type: essential hypertension Qualified Code(s): I10 - Essential (primary) hypertension Is this a current diagnosis for this admission?: YesPlan: See attending physician orders. (3) HLD (hyperlipidemia) Qualifiers: Hyperlipidemia type: pure hypercholesterolemia Qualified Code(s): E78.00 - Pure hypercholesterolemia, unspecified; E78.0 - Pure hypercholesterolemia Is this a current diagnosis for this admission?: YesPlan: See attending physician orders. (4) Senile dementia of Alzheimer's type Is this a current diagnosis for this admission?: YesPlan: See attending physician orders. (5) Hypothyroidism (acquired) Plan: See attending physician orders. (6) Osteoarthritis involving multiple joints on both sides of body Is this a current diagnosis for this admission?: YesPlan: See attending physician orders. (7) Hypokalemia due to inadequate potassium intake Is this a current diagnosis for this admission?: YesPlan: Resolve post replacement therapy. See attending physician orders. (8) Hypomagnesemia Is this a current diagnosis for this admission?: YesPlan: Resolve post replacement therapy. See attending physician orders. (9) Abdominal distension (gaseous) Is this a current diagnosis for this admission?: NoPlan: Continue Simethicone usage. Repeat KUB abdomen in AM. - Time Time Spent with patient: 25-34 minutes Medications reviewed and adjusted accordingly: Yes Anticipated discharge: Home with Homehealth Within: Other - Inpatient Certification Based on my medical assessment, after consideration of the patient's comorbidities, presenting symptoms, or acuity I expect that the services needed warrant INPATIENT care.: Yes I certify that my determination is in accordance with my understanding of Medicare's requirements for reasonable and necessary INPATIENT services [42 CFR 412.3e].: Yes Medical Necessity: Need Close Monitoring Due to Risk of Patient Decompensation, Need For IV Fluids, Need For Continuous Telemetry Monitoring, Need for IV Antibiotics, Risk of Complication if Not Cared For in Hospital Post Hospital Care: D/C Abalone Fisherman Documentation - Plan Summary Plan Summary: See attending physician orders. We will continue IV Azithromycin and Ceftriaxone. Obtain CBC with diff, BMP, KUB abdomen in AM. Maintain on all other current management.
[2016-11-08] MEDS: NORMAL SALINE 10 ML SDV (SCHEDULED) IV SCH (21:42)
[2016-11-08] MEDS: WARFARIN SODIUM 3 MG TABLET PO SCH (21:42)
[2016-11-08] MEDS: SIMVASTATIN 10 MG TABLET PO SCH (21:42)
[2016-11-09] MEDS: SIMETHICONE 80 MG TAB.CHEW PO SCH ×4 (00:49→17:58)
[2016-11-09] MEDS: ALBUTEROL SULFATE 0.083% NEB 2.5 MG/3 ML AMPUL NEB PRN ×3 (03:38→20:08)
[2016-11-09] MEDS: LANSOPRAZOLE 30 MG TAB.RAP.DR PO SCH (05:30)
[2016-11-09] MEDS ORDERED: LORAZEPAM INJ 2 MG/1 ML VIAL ONE (05:54)
[2016-11-09] MEDS ORDERED: LORAZEPAM INJ 2 MG/1 ML VIAL IV ONE (06:00)
[2016-11-09 06:24] LABS: PROTHROMBIN TIME 24.9 SEC (11.4-15.4)
[2016-11-09] MEDS: LEVOTHYROXINE SODIUM 0.15 MG TABLET PO SCH (09:41)
[2016-11-09] MEDS: DONEPEZIL HCL 5 MG TABLET PO SCH (09:41)
[2016-11-09] MEDS: NIFEDIPINE 30 MG TAB.ER.24 PO SCH ×2 (09:41→21:34)
[2016-11-09] MEDS: METOPROLOL TARTRATE 25 MG TABLET PO SCH ×2 (09:42→21:34)
[2016-11-09] MEDS: NORMAL SALINE 10 ML SDV (SCHEDULED) IV SCH ×2 (09:42→21:46)
[2016-11-09] MEDS: AZITHROMYCIN 250 MG TABLET PO SCH (09:42)
[2016-11-09] MEDS: CEFTRIAXONE 1 GM/D5W RTU 1 GM/50 ML RTUPB IV SCH (11:55)
--- NOTE | 2016-11-09 17:36 | PDOC PROGRESS REPORT ---
Subjective Progress Note for:: 11/09/16 Subjective:: Patient seen by the bedside she was admitted for pneumonia, she has episodes of agitation especially at night, I was called last night by the nurses requesting for lorazepam to calm her down Physical Exam Vital Signs: Temp Pulse Resp BP Pulse Ox 97.2 F 75 20 141/66 H 98 11/09/16 16:44 11/09/16 16:44 11/09/16 16:44 11/09/16 16:44 11/09/16 16:44 Intake & Output 11/08/16 11/09/16 11/10/16 06:59 06:59 06:59 Intake Total 1860 1776 250 Output Total 200 Balance 1660 1776 250 General appearance: PRESENT: no acute distress Eye exam: PRESENT: PERRLA Respiratory exam: PRESENT: rhonchi Cardiovascular exam: PRESENT: +S1, +S2 GI/Abdominal exam: PRESENT: soft Results Laboratory Results: 11/08/16 05:39 11/08/16 05:39 Impressions: Chest X-Ray 11/05/16 19:02 IMPRESSION: New patchy airspace opacity in the right lung base. Acute Abdomen Series 11/07/16 00:00 IMPRESSION: There is gaseous distention of the sigmoid colon. The appearance is not classic for sigmoid volvulus but that is in the differential. This may represent ileus. Guidance Fluoroscopy 11/08/16 00:00 IMPRESSION: SUCCESSFUL PLACEMENT OF A 5 FR DUAL LUMEN 35 CM PICC IN THE right brachial VEIN. Interventional Vascular Procedure 11/08/16 00:00 IMPRESSION: SUCCESSFUL PLACEMENT OF A 5 FR DUAL LUMEN 35 CM PICC IN THE right brachial VEIN. PICC Line Insertion 11/08/16 08:00 IMPRESSION: SUCCESSFUL PLACEMENT OF A 5 FR DUAL LUMEN 35 CM PICC IN THE right brachial VEIN. Assessment & Plan - Diagnosis (1) Community acquired pneumonia Is this a current diagnosis for this admission?: YesPlan: Continue treatment (2) Hypothyroidism (acquired) Is this a current diagnosis for this admission?: Yes (3) Senile dementia of Alzheimer's type Is this a current diagnosis for this admission?: Yes
[2016-11-09] MEDS: SIMVASTATIN 10 MG TABLET PO SCH (21:46)
[2016-11-09] MEDS: WARFARIN SODIUM 3 MG TABLET PO SCH (21:46)
[2016-11-10] MEDS: SIMETHICONE 80 MG TAB.CHEW PO SCH ×4 (00:33→19:37)
[2016-11-10] MEDS: ALBUTEROL SULFATE 0.083% NEB 2.5 MG/3 ML AMPUL NEB PRN ×3 (03:22→12:58)
[2016-11-10] MEDS: LORAZEPAM INJ 2 MG/1 ML VIAL IV PRN ×2 (05:03→16:10)
[2016-11-10] MEDS: LANSOPRAZOLE 30 MG TAB.RAP.DR PO SCH (06:01)
[2016-11-10] MEDS: NIFEDIPINE 30 MG TAB.ER.24 PO SCH ×2 (10:27→21:44)
[2016-11-10] MEDS: AZITHROMYCIN 250 MG TABLET PO SCH (10:27)
[2016-11-10] MEDS: DONEPEZIL HCL 5 MG TABLET PO SCH (10:28)
[2016-11-10] MEDS: METOPROLOL TARTRATE 25 MG TABLET PO SCH ×2 (10:28→21:44)
[2016-11-10] MEDS: LEVOTHYROXINE SODIUM 0.15 MG TABLET PO SCH (10:28)
[2016-11-10] MEDS: NORMAL SALINE 10 ML SDV (SCHEDULED) IV SCH ×2 (10:29→22:35)
[2016-11-10] MEDS: CEFTRIAXONE 1 GM/D5W RTU 1 GM/50 ML RTUPB IV SCH (12:16)
--- NOTE | 2016-11-10 18:22 | PDOC PROGRESS REPORT ---
Subjective Progress Note for:: 11/10/16 Subjective:: Patient is wheezing more today, chest x-ray showed no new change, minimal pleural effusion no new infiltrates Physical Exam Vital Signs: Temp Pulse Resp BP Pulse Ox 98.5 F 73 20 128/88 H 98 11/10/16 15:18 11/10/16 15:18 11/10/16 15:18 11/10/16 15:18 11/10/16 15:18 Intake & Output 11/09/16 11/10/16 11/11/16 06:59 06:59 06:59 Intake Total 1776 1700 360 Balance 1776 1700 360 General appearance: PRESENT: mild distress Head exam: PRESENT: atraumatic, normocephalic Ear exam: PRESENT: normal external ear exam Mouth exam: PRESENT: moist, tongue midline Neck exam: PRESENT: full ROM Respiratory exam: PRESENT: wheezes Cardiovascular exam: PRESENT: RRR, +S1, +S2 GI/Abdominal exam: PRESENT: normal bowel sounds, soft Rectal exam: PRESENT: deferred Neurological exam: PRESENT: alert. ABSENT: motor sensory deficit Psychiatric exam: PRESENT: appropriate affect, normal mood Skin exam: PRESENT: dry, intact, warm Results Laboratory Results: 11/08/16 05:39 11/08/16 05:39 Impressions: Acute Abdomen Series 11/07/16 00:00 IMPRESSION: There is gaseous distention of the sigmoid colon. The appearance is not classic for sigmoid volvulus but that is in the differential. This may represent ileus. Guidance Fluoroscopy 11/08/16 00:00 IMPRESSION: SUCCESSFUL PLACEMENT OF A 5 FR DUAL LUMEN 35 CM PICC IN THE right brachial VEIN. Interventional Vascular Procedure 11/08/16 00:00 IMPRESSION: SUCCESSFUL PLACEMENT OF A 5 FR DUAL LUMEN 35 CM PICC IN THE right brachial VEIN. PICC Line Insertion 11/08/16 08:00 IMPRESSION: SUCCESSFUL PLACEMENT OF A 5 FR DUAL LUMEN 35 CM PICC IN THE right brachial VEIN. Chest X-Ray 11/10/16 00:00 IMPRESSION: Bibasilar airspace disease and small effusions left greater than right. Assessment & Plan - Diagnosis (1) Community acquired pneumonia Is this a current diagnosis for this admission?: Yes (2) Hypothyroidism (acquired) Is this a current diagnosis for this admission?: Yes (3) Senile dementia of Alzheimer's type Is this a current diagnosis for this admission?: Yes - Plan Summary Plan Summary: Continue treatment
[2016-11-10] MEDS ORDERED: METHYLPREDNISOLONE INJ 40 MG/1 ML SDV IV ONE (19:00)
[2016-11-10] MEDS ORDERED: IPRATROPIUM/ALBUTEROL 0.5-2.5 MG/3 ML AMPUL NEB SCH ×2 (20:00)
[2016-11-10] MEDS: IPRATROPIUM/ALBUTEROL 0.5-2.5 MG/3 ML AMPUL NEB SCH ×3 (20:03→23:41)
[2016-11-10] MEDS: SIMVASTATIN 10 MG TABLET PO SCH (21:44)
[2016-11-10] MEDS: TRAZODONE HCL 50 MG TABLET PO PRN (21:44)
[2016-11-10] MEDS: WARFARIN SODIUM 3 MG TABLET PO SCH (22:35)
[2016-11-11] MEDS: SIMETHICONE 80 MG TAB.CHEW PO SCH ×4 (00:09→17:55)
[2016-11-11] MEDS: IPRATROPIUM/ALBUTEROL 0.5-2.5 MG/3 ML AMPUL NEB SCH ×9 (02:07→18:39)
[2016-11-11] MEDS: LORAZEPAM INJ 2 MG/1 ML VIAL IV PRN (02:54)
[2016-11-11] MEDS: LANSOPRAZOLE 30 MG TAB.RAP.DR PO SCH (05:41)
[2016-11-11] MEDS: METHYLPREDNISOLONE INJ 40 MG/1 ML SDV IV SCH ×2 (05:41→14:24)
[2016-11-11] MEDS: AZITHROMYCIN 250 MG TABLET PO SCH (10:02)
[2016-11-11] MEDS: LEVOTHYROXINE SODIUM 0.15 MG TABLET PO SCH (10:02)
[2016-11-11] MEDS: NORMAL SALINE 10 ML SDV (SCHEDULED) IV SCH ×2 (10:02→23:04)
[2016-11-11] MEDS: DONEPEZIL HCL 5 MG TABLET PO SCH (10:02)
[2016-11-11] MEDS: METOPROLOL TARTRATE 25 MG TABLET PO SCH ×2 (11:56→23:03)
[2016-11-11] MEDS: NIFEDIPINE 30 MG TAB.ER.24 PO SCH ×2 (11:56→23:04)
[2016-11-11] MEDS: CEFTRIAXONE 1 GM/D5W RTU 1 GM/50 ML RTUPB IV SCH (14:24)
--- NOTE | 2016-11-11 19:04 | PDOC PROGRESS REPORT ---
Subjective Progress Note for:: 11/11/16 Subjective:: Family at bedside reported poor sleep pattern overnight and she has been very sleepy all day although had satisfactory dinner. No abdominal pain, nausea or vomiting. No fever or chills. No noted chest pain or difficulty with breathing. Remain on IV Azithromycin and Ceftriaxone coverage. Physical Exam Vital Signs: Temp Pulse Resp BP Pulse Ox 98.2 F 93 17 120/58 L 96 11/11/16 16:03 11/11/16 16:03 11/11/16 16:03 11/11/16 16:03 11/11/16 16:03 Intake & Output 11/10/16 11/11/16 11/12/16 06:59 06:59 06:59 Intake Total 1700 1560 237 Balance 1700 1560 237 Physical Exam: General appearance: PRESENT: cooperative, mild distress - from elicite abdominal pain with examination. Head exam: PRESENT: atraumatic, normocephalic Eye exam: PRESENT: conjunctiva pink, EOMI, PERRLA. ABSENT: scleral icterus Mouth exam: PRESENT: moist, tongue midline Respiratory exam: PRESENT: clear to auscultation abigail, decreased breath sounds - at lung bases Cardiovascular exam: PRESENT: RRR. ABSENT: diastolic murmur, rubs, systolic murmur GI/Abdominal exam: PRESENT: distended, normal bowel sounds, tenderness - diffusely Rectal exam: PRESENT: hemorrhoids - external Extremities exam: PRESENT: full ROM Musculoskeletal exam: PRESENT: deformity Neurological exam: PRESENT: alert, awake, CN II-XII grossly intact, motor sensory deficit Psychiatric exam: PRESENT: appropriate affect, normal mood. ABSENT: homicidal ideation, suicidal ideation Results Laboratory Results: 11/08/16 05:39 11/08/16 05:39 Impressions: Acute Abdomen Series 11/07/16 00:00 IMPRESSION: There is gaseous distention of the sigmoid colon. The appearance is not classic for sigmoid volvulus but that is in the differential. This may represent ileus. Guidance Fluoroscopy 11/08/16 00:00 IMPRESSION: SUCCESSFUL PLACEMENT OF A 5 FR DUAL LUMEN 35 CM PICC IN THE right brachial VEIN. Interventional Vascular Procedure 11/08/16 00:00 IMPRESSION: SUCCESSFUL PLACEMENT OF A 5 FR DUAL LUMEN 35 CM PICC IN THE right brachial VEIN. PICC Line Insertion 11/08/16 08:00 IMPRESSION: SUCCESSFUL PLACEMENT OF A 5 FR DUAL LUMEN 35 CM PICC IN THE right brachial VEIN. Chest X-Ray 11/10/16 00:00 IMPRESSION: Bibasilar airspace disease and small effusions left greater than right. Assessment & Plan - Diagnosis (1) Community acquired pneumonia Is this a current diagnosis for this admission?: YesPlan: Continue IV Ceftriaxone and Azithromycin coverage. See attending physician orders. (2) HTN (hypertension) Qualifiers: Hypertension type: essential hypertension Qualified Code(s): I10 - Essential (primary) hypertension Is this a current diagnosis for this admission?: YesPlan: See attending physician orders. (3) HLD (hyperlipidemia) Qualifiers: Hyperlipidemia type: pure hypercholesterolemia Qualified Code(s): E78.00 - Pure hypercholesterolemia, unspecified; E78.0 - Pure hypercholesterolemia Is this a current diagnosis for this admission?: YesPlan: See attending physician orders. (4) Senile dementia of Alzheimer's type Is this a current diagnosis for this admission?: YesPlan: See attending physician orders. (5) Hypothyroidism (acquired) Is this a current diagnosis for this admission?: YesPlan: See attending physician orders. (6) Osteoarthritis involving multiple joints on both sides of body Is this a current diagnosis for this admission?: YesPlan: See attending physician orders. 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 Follow up on INR. 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 Follow up on INR. - Time Time Spent with patient: 25-34 minutes Medications reviewed and adjusted accordingly: Yes Anticipated discharge: Home with Homehealth Within: within 72 hours - Inpatient Certification Medical Necessity: Need Close Monitoring Due to Risk of Patient Decompensation, Need For IV Fluids, Need For Continuous Telemetry Monitoring, Need for IV Antibiotics, Risk of Complication if Not Cared For in Hospital Post Hospital Care: D/C Photogrammetric Tech Documentation - Plan Summary Plan Summary: See attending physician orders.
[2016-11-11 20:55] LABS: PROTHROMBIN TIME 26.1 SEC (11.4-15.4)
[2016-11-11] MEDS: FLUTICASONE/SALMETEROL DISKUS 250-50 MCG/DOSE IH SCH (23:04)
[2016-11-11] MEDS: WARFARIN SODIUM 3 MG TABLET PO SCH (23:04)
[2016-11-11] MEDS: SIMVASTATIN 10 MG TABLET PO SCH (23:04)
[2016-11-12] MEDS: SIMETHICONE 80 MG TAB.CHEW PO SCH ×4 (00:26→18:07)
[2016-11-12] MEDS: LANSOPRAZOLE 30 MG TAB.RAP.DR PO SCH (05:15)
[2016-11-12 07:21] LABS: PROTHROMBIN TIME 27.6 SEC (11.4-15.4)
[2016-11-12] MEDS: LEVOTHYROXINE SODIUM 0.15 MG TABLET PO SCH (09:09)
[2016-11-12] MEDS: DONEPEZIL HCL 5 MG TABLET PO SCH (09:09)
[2016-11-12] MEDS: NORMAL SALINE 10 ML SDV (SCHEDULED) IV SCH ×2 (09:09→22:49)
[2016-11-12] MEDS: METOPROLOL TARTRATE 25 MG TABLET PO SCH ×2 (09:10→22:48)
[2016-11-12] MEDS: FLUTICASONE/SALMETEROL DISKUS 250-50 MCG/DOSE IH SCH ×2 (09:11→22:48)
[2016-11-12] MEDS: AZITHROMYCIN 250 MG TABLET PO SCH (09:11)
[2016-11-12] MEDS: NIFEDIPINE 30 MG TAB.ER.24 PO SCH ×2 (09:11→22:48)
[2016-11-12] MEDS: ALBUTEROL SULFATE 0.083% NEB 2.5 MG/3 ML AMPUL NEB PRN ×2 (11:13→19:38)
[2016-11-12] MEDS: CEFTRIAXONE 1 GM/D5W RTU 1 GM/50 ML RTUPB IV SCH (13:41)
--- NOTE | 2016-11-12 17:52 | PDOC PROGRESS REPORT ---
Subjective Progress Note for:: 11/12/16 Subjective:: Patient is awake and more engaging so far today. Participated in physical therapy session earlier today and OOB in chair with son at bedside. No fever or chills. No noted chest pain or difficulty with breathing. No abdominal pain, nausea or vomiting. P.O. intake satisfactory. Remain on IV Azithromycin and Ceftriaxone coverage. Physical Exam Vital Signs: Temp Pulse Resp BP Pulse Ox 98.1 F 73 16 127/53 H 95 11/12/16 15:18 11/12/16 15:18 11/12/16 15:18 11/12/16 15:18 11/12/16 15:18 Intake & Output 11/11/16 11/12/16 11/13/16 06:59 06:59 06:59 Intake Total 1560 1817 500 Balance 1560 1817 500 Physical Exam: General appearance: PRESENT: cooperative, mild distress - from elicite abdominal pain with examination. Head exam: PRESENT: atraumatic, normocephalic Eye exam: PRESENT: conjunctiva pink, EOMI, PERRLA. ABSENT: scleral icterus Mouth exam: PRESENT: moist, tongue midline Respiratory exam: PRESENT: clear to auscultation abigail, decreased breath sounds - at lung bases Cardiovascular exam: PRESENT: RRR. ABSENT: diastolic murmur, rubs, systolic murmur GI/Abdominal exam: PRESENT: distended, normal bowel sounds, tenderness - diffusely Rectal exam: PRESENT: hemorrhoids - external Extremities exam: PRESENT: full ROM Musculoskeletal exam: PRESENT: deformity due to joints involvement by arthritis Neurological exam: PRESENT: alert, awake, CN II-XII grossly intact, motor sensory deficit Psychiatric exam: PRESENT: appropriate affect, normal mood. ABSENT: homicidal ideation, suicidal ideation Results Laboratory Results: 11/08/16 05:39 11/08/16 05:39 Impressions: Acute Abdomen Series 11/07/16 00:00 IMPRESSION: There is gaseous distention of the sigmoid colon. The appearance is not classic for sigmoid volvulus but that is in the differential. This may represent ileus. Guidance Fluoroscopy 11/08/16 00:00 IMPRESSION: SUCCESSFUL PLACEMENT OF A 5 FR DUAL LUMEN 35 CM PICC IN THE right brachial VEIN. Interventional Vascular Procedure 11/08/16 00:00 IMPRESSION: SUCCESSFUL PLACEMENT OF A 5 FR DUAL LUMEN 35 CM PICC IN THE right brachial VEIN. PICC Line Insertion 11/08/16 08:00 IMPRESSION: SUCCESSFUL PLACEMENT OF A 5 FR DUAL LUMEN 35 CM PICC IN THE right brachial VEIN. Chest X-Ray 11/10/16 00:00 IMPRESSION: Bibasilar airspace disease and small effusions left greater than right. Assessment & Plan - Diagnosis (1) Community acquired pneumonia Is this a current diagnosis for this admission?: Yes (2) HTN (hypertension) Qualifiers: Hypertension type: essential hypertension Qualified Code(s): I10 - Essential (primary) hypertension Is this a current diagnosis for this admission?: Yes (3) HLD (hyperlipidemia) Qualifiers: Hyperlipidemia type: pure hypercholesterolemia Qualified Code(s): E78.00 - Pure hypercholesterolemia, unspecified; E78.0 - Pure hypercholesterolemia Is this a current diagnosis for this admission?: Yes (4) Senile dementia of Alzheimer's type Is this a current diagnosis for this admission?: Yes (5) Hypothyroidism (acquired) Is this a current diagnosis for this admission?: Yes (6) Osteoarthritis involving multiple joints on both sides of body Is this a current diagnosis for this admission?: Yes (7) Hypokalemia due to inadequate potassium intake Is this a current diagnosis for this admission?: Yes (8) Hypomagnesemia Is this a current diagnosis for this admission?: Yes (9) Abdominal distension (gaseous) Is this a current diagnosis for this admission?: No (10) Ch DVT/embl low ext NOS Is this a current diagnosis for this admission?: Yes (11) Chronic pulmonary embolism Qualifiers: Acute cor pulmonale presence: without acute cor pulmonale Is this a current diagnosis for this admission?: Yes - Time Time Spent with patient: 25-34 minutes Medications reviewed and adjusted accordingly: Yes Anticipated discharge: Home with Homehealth Within: Other - Inpatient Certification Based on my medical assessment, after consideration of the patient's comorbidities, presenting symptoms, or acuity I expect that the services needed warrant INPATIENT care.: Yes I certify that my determination is in accordance with my understanding of Medicare's requirements for reasonable and necessary INPATIENT services [42 CFR 412.3e].: Yes Medical Necessity: Need Close Monitoring Due to Risk of Patient Decompensation, Need For IV Fluids, Need For Continuous Telemetry Monitoring, Need for Nebulizer Therapy and Monitoring of Response, Need for IV Antibiotics, Risk of Complication if Not Cared For in Hospital Post Hospital Care: D/C Manager Operational Documentation - Plan Summary Plan Summary: Patient is day # 6 on IV Ceftriaxone and oral Azithromycin coverage. Blood culture and sputum culture were unrevealing. Urine culture grew mixed urogenital dc with insignificant colony count. I will change antibiotic coverage to oral Azithromycin from tomorrow. She participated in physical therapy and will benefit from same upon discharge. Continue on all other medication management. Family and patient are aware of discharge plan and agreeable.
[2016-11-12] MEDS: NORMAL SALINE 1000 ML 1,000 ML IV PRN (18:10)
[2016-11-12 20:35] LABS: ABSOLUTE LYMPHOCYTES (AUTO) 0.6 10^3/uL (0.5-4.7); ABSOLUTE MONOCYTES (AUTO) 0.8 10^3/uL (0.1-1.4); BASOPHILS % (AUTO) 0.5 % (0-2); EOSINOPHILS % (AUTO) 0.3 % (0-6); HEMOGLOBIN 10.8 g/dL (12.0-15.5); HGB HCT DIFFERENCE -0.6; LYMPHOCYTES % (AUTO) 6.7 % (13-45); MEAN CORPUSCULAR HEMOGLOBIN 30.2 pg (27.0-33.4); MEAN CORPUSCULAR HGB CONC 32.7 g/dL (32.0-36.0); MEAN CORPUSCULAR VOLUME 92 fl (80-97); MONOCYTES % (AUTO) 9.8 % (3-13); RED BLOOD COUNT 3.58 10^6/uL (3.72-5.28); RED CELL DISTRIBUTION WIDTH 14.1 % (11.5-14.0); SEGMENTED NEUTROPHILS % (AUTO) 82.7 % (42-78); WHITE BLOOD COUNT 8.5 10^3/uL (4.0-10.5)
[2016-11-12 20:52] LABS: ANION GAP 14 (5-19); BLOOD UREA NITROGEN 15 mg/dL (7-20); CALCIUM 8.9 mg/dL (8.4-10.2); CARBON DIOXIDE 25 mmol/L (22-30); CHLORIDE 104 mmol/L (98-107); CREATININE RESULT 1.01 mg/dL (0.52-1.25); GLUCOSE 106 mg/dL (75-110); POTASSIUM 3.5 mmol/L (3.6-5.0); SODIUM 142.8 mmol/L (137-145)
[2016-11-12] MEDS: WARFARIN SODIUM 3 MG TABLET PO SCH (22:49)
[2016-11-12] MEDS: SIMVASTATIN 10 MG TABLET PO SCH (22:49)
[2016-11-12] MEDS: TRAZODONE HCL 50 MG TABLET PO PRN (23:05)
[2016-11-13] MEDS: SIMETHICONE 80 MG TAB.CHEW PO SCH ×4 (00:39→18:35)
[2016-11-13] MEDS: ALBUTEROL SULFATE 0.083% NEB 2.5 MG/3 ML AMPUL NEB PRN ×4 (00:58→23:24)
[2016-11-13] MEDS: LANSOPRAZOLE 30 MG TAB.RAP.DR PO SCH (06:05)
[2016-11-13 06:31] LABS: PROTHROMBIN TIME 27.2 SEC (11.4-15.4)
[2016-11-13] MEDS: METOPROLOL TARTRATE 25 MG TABLET PO SCH ×2 (11:26→22:22)
[2016-11-13] MEDS: NIFEDIPINE 30 MG TAB.ER.24 PO SCH ×2 (11:27→22:22)
[2016-11-13] MEDS: LEVOTHYROXINE SODIUM 0.15 MG TABLET PO SCH (11:27)
[2016-11-13] MEDS: DONEPEZIL HCL 5 MG TABLET PO SCH (11:27)
[2016-11-13] MEDS: FLUTICASONE/SALMETEROL DISKUS 250-50 MCG/DOSE IH SCH ×2 (11:28→22:21)
[2016-11-13] MEDS: NORMAL SALINE 10 ML SDV (SCHEDULED) IV SCH ×2 (11:28→22:23)
--- NOTE | 2016-11-13 18:23 | PDOC PROGRESS REPORT ---
Subjective Progress Note for:: 11/13/16 Subjective:: Patient is OOB in chair with granddaughter at bedside. No fever or chills. No noted chest pain or difficulty with breathing. No abdominal pain, nausea or vomiting. P.O. intake satisfactory. Day # 7 on IV Azithromycin and Ceftriaxone. Physical Exam Vital Signs: Temp Pulse Resp BP Pulse Ox 98.6 F 76 18 126/71 H 89 L 11/13/16 11:10 11/13/16 11:30 11/13/16 11:30 11/13/16 11:10 11/13/16 11:30 Intake & Output 11/12/16 11/13/16 11/14/16 06:59 06:59 06:59 Intake Total 1817 1840 237 Balance 1817 1840 237 Physical Exam: General appearance: PRESENT: Alert, cooperative Head exam: PRESENT: atraumatic, normocephalic Eye exam: PRESENT: conjunctiva pink, EOMI, PERRLA. ABSENT: scleral icterus Mouth exam: PRESENT: moist, tongue midline Respiratory exam: PRESENT: scattered crackles, expiratory rhonchi, decreased breath sounds - at lung bases Cardiovascular exam: PRESENT: RRR. ABSENT: diastolic murmur, rubs, systolic murmur GI/Abdominal exam: PRESENT: distended, normal bowel sounds, tenderness - diffusely Rectal exam: PRESENT: hemorrhoids - external Extremities exam: PRESENT: full ROM Musculoskeletal exam: PRESENT: deformity due to joints involvement by arthritis Neurological exam: PRESENT: alert, awake, CN II-XII grossly intact, motor sensory deficit Psychiatric exam: PRESENT: appropriate affect, normal mood. ABSENT: homicidal ideation, suicidal ideation Results Laboratory Results: 11/12/16 20:15 11/12/16 20:15 11/12/16 11/12/16 20:15 20:15 WBC 8.5 RBC 3.58 L Hgb 10.8 L Hct 33.0 L MCV 92 MCH 30.2 MCHC 32.7 RDW 14.1 H Plt Count 262 Seg Neutrophils % 82.7 H Lymphocytes % 6.7 L Monocytes % 9.8 Eosinophils % 0.3 Basophils % 0.5 Absolute Neutrophils 7.0 Absolute Lymphocytes 0.6 Absolute Monocytes 0.8 Absolute Eosinophils 0.0 Absolute Basophils 0.0 Sodium 142.8 Potassium 3.5 L Chloride 104 Carbon Dioxide 25 Anion Gap 14 BUN 15 Creatinine 1.01 Est GFR ( Amer) > 60 Est GFR (Non-Af Amer) 52 L Glucose 106 Calcium 8.9 Impressions: Acute Abdomen Series 11/07/16 00:00 IMPRESSION: There is gaseous distention of the sigmoid colon. The appearance is not classic for sigmoid volvulus but that is in the differential. This may represent ileus. Guidance Fluoroscopy 11/08/16 00:00 IMPRESSION: SUCCESSFUL PLACEMENT OF A 5 FR DUAL LUMEN 35 CM PICC IN THE right brachial VEIN. Interventional Vascular Procedure 11/08/16 00:00 IMPRESSION: SUCCESSFUL PLACEMENT OF A 5 FR DUAL LUMEN 35 CM PICC IN THE right brachial VEIN. PICC Line Insertion 11/08/16 08:00 IMPRESSION: SUCCESSFUL PLACEMENT OF A 5 FR DUAL LUMEN 35 CM PICC IN THE right brachial VEIN. Chest X-Ray 11/10/16 00:00 IMPRESSION: Bibasilar airspace disease and small effusions left greater than right. Assessment & Plan - Diagnosis (1) Community acquired pneumonia Is this a current diagnosis for this admission?: Yes (2) HTN (hypertension) Qualifiers: Hypertension type: essential hypertension Qualified Code(s): I10 - Essential (primary) hypertension Is this a current diagnosis for this admission?: Yes (3) HLD (hyperlipidemia) Qualifiers: Hyperlipidemia type: pure hypercholesterolemia Qualified Code(s): E78.00 - Pure hypercholesterolemia, unspecified; E78.0 - Pure hypercholesterolemia Is this a current diagnosis for this admission?: Yes (4) Senile dementia of Alzheimer's type Is this a current diagnosis for this admission?: Yes (5) Hypothyroidism (acquired) Is this a current diagnosis for this admission?: Yes (6) Osteoarthritis involving multiple joints on both sides of body Is this a current diagnosis for this admission?: Yes (7) Hypokalemia due to inadequate potassium intake Is this a current diagnosis for this admission?: Yes (8) Hypomagnesemia Is this a current diagnosis for this admission?: Yes (9) Abdominal distension (gaseous) Is this a current diagnosis for this admission?: No (10) Ch DVT/embl low ext NOS Is this a current diagnosis for this admission?: Yes (11) Chronic pulmonary embolism Qualifiers: Acute cor pulmonale presence: without acute cor pulmonale Is this a current diagnosis for this admission?: Yes - Time Time Spent with patient: 25-34 minutes Medications reviewed and adjusted accordingly: Yes Anticipated discharge: Home with Homehealth Within: Other - Inpatient Certification Medical Necessity: Need Close Monitoring Due to Risk of Patient Decompensation, Need For Continuous Telemetry Monitoring, Need for Nebulizer Therapy and Monitoring of Response, Risk of Complication if Not Cared For in Hospital Post Hospital Care: D/C Film Examiner Documentation - Plan Summary Plan Summary: Emphasized strict aspiration precautions during feeding or drinking. She will receive bronchodilator therapy stat dose. Continue on other current COPD medication management. D/C IV Azithromycin and Ceftriaxone. Start on oral Zithromax 500 mg po daily from tomorrow. Encourage ambulatory activities.
[2016-11-13] MEDS: WARFARIN SODIUM 3 MG TABLET PO SCH (22:22)
[2016-11-13] MEDS: SIMVASTATIN 10 MG TABLET PO SCH (22:23)
[2016-11-13] MEDS: TRAZODONE HCL 50 MG TABLET PO PRN (22:24)
[2016-11-14] MEDS: SIMETHICONE 80 MG TAB.CHEW PO SCH ×4 (01:05→18:20)
[2016-11-14] MEDS: LANSOPRAZOLE 30 MG TAB.RAP.DR PO SCH (05:35)
[2016-11-14 06:49] LABS: PROTHROMBIN TIME 17.9 SEC (11.4-15.4)
[2016-11-14] MEDS: ALBUTEROL SULFATE 0.083% NEB 2.5 MG/3 ML AMPUL NEB PRN ×3 (09:28→21:46)
[2016-11-14] MEDS: FLUTICASONE/SALMETEROL DISKUS 250-50 MCG/DOSE IH SCH ×2 (10:08→21:42)
[2016-11-14] MEDS: DONEPEZIL HCL 5 MG TABLET PO SCH (10:08)
[2016-11-14] MEDS: METOPROLOL TARTRATE 25 MG TABLET PO SCH ×2 (10:08→21:43)
[2016-11-14] MEDS: LEVOTHYROXINE SODIUM 0.15 MG TABLET PO SCH (10:08)
[2016-11-14] MEDS: NIFEDIPINE 30 MG TAB.ER.24 PO SCH ×2 (10:08→21:45)
[2016-11-14] MEDS: NORMAL SALINE 10 ML SDV (SCHEDULED) IV SCH ×2 (10:08→21:43)
--- NOTE | 2016-11-14 18:36 | PDOC PROGRESS REPORT ---
Subjective Progress Note for:: 11/14/16 Subjective:: Patient continue to demonstrate some degree of wheezing. No fever or chills. No noted chest pain. No abdominal pain, nausea or vomiting. P.O. intake satisfactory but definite report of aspiration by family or nursing staff. Physical Exam Vital Signs: Temp Pulse Resp BP Pulse Ox 97.9 F 78 20 115/70 96 11/14/16 15:00 11/14/16 16:59 11/14/16 16:59 11/14/16 15:00 11/14/16 16:59 Intake & Output 11/13/16 11/14/16 11/15/16 06:59 06:59 06:59 Intake Total 1840 674 Balance 1840 674 Physical Exam: General appearance: PRESENT: Alert, cooperative Head exam: PRESENT: atraumatic, normocephalic Eye exam: PRESENT: conjunctiva pink, EOMI, PERRLA. ABSENT: scleral icterus Mouth exam: PRESENT: moist, tongue midline Respiratory exam: PRESENT: minimal scattered crackles, expiratory rhonchi, decreased breath sounds - at lung bases Cardiovascular exam: PRESENT: RRR. ABSENT: diastolic murmur, rubs, systolic murmur GI/Abdominal exam: PRESENT: distended, normal bowel sounds, tenderness - diffusely Rectal exam: PRESENT: hemorrhoids - external Extremities exam: PRESENT: full ROM Musculoskeletal exam: PRESENT: deformity due to joints involvement by arthritis Neurological exam: PRESENT: alert, awake, CN II-XII grossly intact, motor sensory deficit Psychiatric exam: PRESENT: appropriate affect, normal mood. ABSENT: homicidal ideation, suicidal ideation Results Laboratory Results: 11/12/16 20:15 11/12/16 20:15 Impressions: Acute Abdomen Series 11/07/16 00:00 IMPRESSION: There is gaseous distention of the sigmoid colon. The appearance is not classic for sigmoid volvulus but that is in the differential. This may represent ileus. Guidance Fluoroscopy 11/08/16 00:00 IMPRESSION: SUCCESSFUL PLACEMENT OF A 5 FR DUAL LUMEN 35 CM PICC IN THE right brachial VEIN. Interventional Vascular Procedure 11/08/16 00:00 IMPRESSION: SUCCESSFUL PLACEMENT OF A 5 FR DUAL LUMEN 35 CM PICC IN THE right brachial VEIN. PICC Line Insertion 11/08/16 08:00 IMPRESSION: SUCCESSFUL PLACEMENT OF A 5 FR DUAL LUMEN 35 CM PICC IN THE right brachial VEIN. Chest X-Ray 11/10/16 00:00 IMPRESSION: Bibasilar airspace disease and small effusions left greater than right. Assessment & Plan - Diagnosis (1) Community acquired pneumonia Is this a current diagnosis for this admission?: Yes (2) HTN (hypertension) Qualifiers: Hypertension type: essential hypertension Qualified Code(s): I10 - Essential (primary) hypertension Is this a current diagnosis for this admission?: Yes (3) HLD (hyperlipidemia) Qualifiers: Hyperlipidemia type: pure hypercholesterolemia Qualified Code(s): E78.00 - Pure hypercholesterolemia, unspecified; E78.0 - Pure hypercholesterolemia Is this a current diagnosis for this admission?: Yes (4) Senile dementia of Alzheimer's type Is this a current diagnosis for this admission?: Yes (5) Hypothyroidism (acquired) Is this a current diagnosis for this admission?: Yes (6) Osteoarthritis involving multiple joints on both sides of body Is this a current diagnosis for this admission?: Yes (7) Hypokalemia due to inadequate potassium intake Is this a current diagnosis for this admission?: Yes (8) Hypomagnesemia Is this a current diagnosis for this admission?: Yes (9) Abdominal distension (gaseous) Is this a current diagnosis for this admission?: No (10) Ch DVT/embl low ext NOS Is this a current diagnosis for this admission?: Yes (11) Chronic pulmonary embolism Qualifiers: Acute cor pulmonale presence: without acute cor pulmonale Is this a current diagnosis for this admission?: Yes - Time Time Spent with patient: 25-34 minutes Medications reviewed and adjusted accordingly: Yes Anticipated discharge: Home with Homehealth - Inpatient Certification Based on my medical assessment, after consideration of the patient's comorbidities, presenting symptoms, or acuity I expect that the services needed warrant INPATIENT care.: Yes I certify that my determination is in accordance with my understanding of Medicare's requirements for reasonable and necessary INPATIENT services [42 CFR 412.3e].: Yes Medical Necessity: Need Close Monitoring Due to Risk of Patient Decompensation, Need For Continuous Telemetry Monitoring, Need for Nebulizer Therapy and Monitoring of Response, Risk of Complication if Not Cared For in Hospital Post Hospital Care: D/C Cloth Examiner Machine Documentation - Plan Summary Plan Summary: Obtain CBC with diff, BMP, Mag level. Maintain on Azithromycin 500mg p.o daily. Monitor INR closely. Continue cardiac monitoring. Maintain on all other current medication management.
[2016-11-14 19:07] LABS: ABSOLUTE EOSINOPHILS # (AUTO) 0.1 10^3/uL (0.0-0.6); ABSOLUTE LYMPHOCYTES (AUTO) 0.8 10^3/uL (0.5-4.7); ABSOLUTE MONOCYTES (AUTO) 0.8 10^3/uL (0.1-1.4); ABSOLUTE NEUT (AUTO) 4.7 10^3/uL (1.7-8.2); BASOPHILS % (AUTO) 0.7 % (0-2); EOSINOPHILS % (AUTO) 1.2 % (0-6); HEMATOCRIT 33.6 % (36.0-47.0); HEMOGLOBIN 10.8 g/dL (12.0-15.5); HGB HCT DIFFERENCE -1.2; MEAN CORPUSCULAR HGB CONC 32.2 g/dL (32.0-36.0); MEAN CORPUSCULAR VOLUME 93 fl (80-97); MONOCYTES % (AUTO) 12.6 % (3-13); RED CELL DISTRIBUTION WIDTH 14.1 % (11.5-14.0); SEGMENTED NEUTROPHILS % (AUTO) 73.5 % (42-78); WHITE BLOOD COUNT 6.4 10^3/uL (4.0-10.5)
[2016-11-14 19:39] LABS: ANION GAP 13 (5-19); BLOOD UREA NITROGEN 17 mg/dL (7-20); CALCIUM 8.5 mg/dL (8.4-10.2); CARBON DIOXIDE 24 mmol/L (22-30); CHLORIDE 102 mmol/L (98-107); GLUCOSE 107 mg/dL (75-110); MAGNESIUM 1.6 mg/dL (1.6-2.3); POTASSIUM 3.6 mmol/L (3.6-5.0); SODIUM 139.2 mmol/L (137-145)
[2016-11-14] MEDS ORDERED: AZITHROMYCIN 250 MG TABLET PO SCH (20:00)
[2016-11-14] MEDS: SIMVASTATIN 10 MG TABLET PO SCH (21:43)
[2016-11-14] MEDS: WARFARIN SODIUM 3 MG TABLET PO SCH (21:45)
[2016-11-14] MEDS: NORMAL SALINE 1000 ML 1,000 ML IV PRN (21:45)
[2016-11-15] MEDS: SIMETHICONE 80 MG TAB.CHEW PO SCH ×3 (00:22→11:38)
[2016-11-15] MEDS: LANSOPRAZOLE 30 MG TAB.RAP.DR PO SCH (07:00)
[2016-11-15] MEDS: FLUTICASONE/SALMETEROL DISKUS 250-50 MCG/DOSE IH SCH (09:07)
[2016-11-15] MEDS: NIFEDIPINE 30 MG TAB.ER.24 PO SCH (09:07)
[2016-11-15] MEDS: NORMAL SALINE 10 ML SDV (SCHEDULED) IV SCH (09:08)
[2016-11-15] MEDS: METOPROLOL TARTRATE 25 MG TABLET PO SCH (09:09)
[2016-11-15] MEDS: DONEPEZIL HCL 5 MG TABLET PO SCH (09:09)
[2016-11-15] MEDS: LEVOTHYROXINE SODIUM 0.15 MG TABLET PO SCH (09:09)
[2016-11-15] MEDS: ALBUTEROL SULFATE 0.083% NEB 2.5 MG/3 ML AMPUL NEB PRN (09:44)
--- NOTE | 2016-11-15 15:29 | PDOC DISCHARGE SUMMARY ---
General - Admit/Disc Date/PCP Admission Date/Primary Care Provider: 11/06/16 07:50 DUDLEY PAMELLA Discharge Date: 11/15/16 - Discharge Diagnosis (1) Community acquired pneumonia Is this a current diagnosis for this admission?: Yes (2) HTN (hypertension) Is this a current diagnosis for this admission?: Yes (3) HLD (hyperlipidemia) Is this a current diagnosis for this admission?: Yes (4) Senile dementia of Alzheimer's type Is this a current diagnosis for this admission?: Yes (5) Hypothyroidism (acquired) Is this a current diagnosis for this admission?: Yes (6) Osteoarthritis involving multiple joints on both sides of body Is this a current diagnosis for this admission?: Yes (7) Hypokalemia due to inadequate potassium intake Is this a current diagnosis for this admission?: Yes (8) Hypomagnesemia Is this a current diagnosis for this admission?: Yes (9) Abdominal distension (gaseous) Is this a current diagnosis for this admission?: No (10) Ch DVT/embl low ext NOS Is this a current diagnosis for this admission?: Yes (11) Chronic pulmonary embolism Is this a current diagnosis for this admission?: Yes - Additional Information Resuscitation Status: Full Code Home Medications: Metoprolol Tartrate [Lopressor 25 Mg Tablet] 12.5 mg PO BID 12/31/11 Nifedipine [Procardia XL 30 mg Tablet] 60 mg PO Q12 #0 tab.er.24 05/25/12 Simvastatin 20 mg PO QHS 12/12/12 Warfarin Sodium [Coumadin 3 Mg Tablet] 3 mg PO MOWEFR 12/12/12 Donepezil HCl [Aricept] 10 mg PO DAILY 11/06/16 Levothyroxine Sodium [Synthroid 0.1 mg Tablet] 0.1 mg PO QAM 11/06/16 Warfarin Sodium [Coumadin 3 mg Tablet] 1.5 mg PO SUTUTHSA 11/06/16 History of Present Illness History of Present Illness: LEXUS HELMS is a 89 year old female known to my practice who was brought by family to ED due to worsening productive cough, difficulty with breathing and chest congestion as per daughter at bedside. Patient do have history of dementia but remain fairly appropriate in simple responses. Family reported onset of her symptoms with cough and chest congestion about 4 days prior to presentation. Patient reported associated chest discomfort described as intermittent tightness in her chest. There was associated audible wheezing as per daughter's report. Daughter reported cough that has been productive of yellow mucoid sputum and noted streak of blood in phlegm prior to coming to the ED. There is no definite fever from measured temperature but daughter reported that patient has been persistently chill more than usual at home, requesting for more cover clothing. No reported nausea or vomiting. Her appetite and p.o intake remain fairly satisfactory. Family denied any similar symptoms in any family member or recent travel. Hospital Course Hospital Course: Patient was admitted to right lower lobe pneumonia. Her presenting symptoms of shortness of breath improved. She was management with IV Azithromycin and Ceftriaxone. She has been transitioned to oral Azithromycin therapy. Her hospital stay was further protracted due to episodes of respiratory decompensation with need for IV Solu Medrol therapy and eventual start o Advair and Combivent therapy. She will be discharge home today with CERAMICS TECHNICIAN services to include Visiting nurse and physical the . She will follow up at the office as directed upon discharge. Physical Exam Vital Signs: Temp Pulse Resp BP Pulse Ox 99.2 F 65 17 106/55 L 95 11/15/16 11:39 11/15/16 14:00 11/15/16 11:39 11/15/16 11:39 11/15/16 11:39 Intake & Output 11/14/16 11/15/16 11/16/16 06:59 06:59 06:59 Intake Total 674 1013 240 Balance 674 1013 240 General appearance: PRESENT: no acute distress, cooperative Head exam: PRESENT: atraumatic, normocephalic Eye exam: PRESENT: conjunctiva pink, EOMI, PERRLA. ABSENT: scleral icterus Mouth exam: PRESENT: moist Neck exam: PRESENT: full ROM. ABSENT: carotid bruit, JVD, lymphadenopathy, thyromegaly Respiratory exam: PRESENT: clear to auscultation abigail Cardiovascular exam: PRESENT: RRR. ABSENT: diastolic murmur, rubs, systolic murmur GI/Abdominal exam: PRESENT: normal bowel sounds, soft. ABSENT: distended, guarding, mass, organolmegaly, rebound, tenderness Extremities exam: PRESENT: full ROM Musculoskeletal exam: PRESENT: deformity - related to multiple joints involvement with arthritis. Neurological exam: PRESENT: alert, awake, CN II-XII grossly intact, motor sensory deficit Psychiatric exam: PRESENT: appropriate affect, normal mood. ABSENT: homicidal ideation, suicidal ideation Skin exam: PRESENT: dry, intact, warm. ABSENT: cyanosis, rash Results Laboratory Results: 11/14/16 18:45 11/14/16 18:45 11/14/16 11/14/16 18:45 18:45 WBC 6.4 RBC 3.60 L Hgb 10.8 L Hct 33.6 L MCV 93 MCH 30.0 MCHC 32.2 RDW 14.1 H Plt Count 243 Seg Neutrophils % 73.5 Lymphocytes % 12.0 L Monocytes % 12.6 Eosinophils % 1.2 Basophils % 0.7 Absolute Neutrophils 4.7 Absolute Lymphocytes 0.8 Absolute Monocytes 0.8 Absolute Eosinophils 0.1 Absolute Basophils 0.0 Sodium 139.2 Potassium 3.6 Chloride 102 Carbon Dioxide 24 Anion Gap 13 BUN 17 Creatinine 1.00 Est GFR ( Amer) > 60 Est GFR (Non-Af Amer) 52 L Glucose 107 Calcium 8.5 Magnesium 1.6 Impressions: Acute Abdomen Series 11/07/16 00:00 IMPRESSION: There is gaseous distention of the sigmoid colon. The appearance is not classic for sigmoid volvulus but that is in the differential. This may represent ileus. Guidance Fluoroscopy 11/08/16 00:00 IMPRESSION: SUCCESSFUL PLACEMENT OF A 5 FR DUAL LUMEN 35 CM PICC IN THE right brachial VEIN. Interventional Vascular Procedure 11/08/16 00:00 IMPRESSION: SUCCESSFUL PLACEMENT OF A 5 FR DUAL LUMEN 35 CM PICC IN THE right brachial VEIN. PICC Line Insertion 11/08/16 08:00 IMPRESSION: SUCCESSFUL PLACEMENT OF A 5 FR DUAL LUMEN 35 CM PICC IN THE right brachial VEIN. Chest X-Ray 11/10/16 00:00 IMPRESSION: Bibasilar airspace disease and small effusions left greater than right. Qualifiers PATEINT BEING DISCHARGED WITH ANY OF THE FOLLOWING DIAGNOSIS?: No Plan Discharge Plan: Discharge home today. Follow up in he office as instructed upon discharge. Time Spent: Less than 30 Minutes
[2016-11-15 16:11] VITALS: BP 115/70
== END 2016-11-15 16:30 | disposition home health service (06) | DRG 194 ==
LOC: ER 17:20 → UNDOADMIN 22:16 → EH 22:16 → 2N 11-06 09:34 → 5 11-06 15:15
PROVIDERS: ADMIT Internal Medicine Geriatric Medicine; ATTEND Internal Medicine Geriatric Medicine
PROC: 02HV33Z Insertion of Infusion Device into Superior Vena Cava, Percutaneous Approach (ICD-10-PCS; principal; 2016-11-08)
PROC: B5181ZA Fluoroscopy of Superior Vena Cava using Low Osmolar Contrast, Guidance (ICD-10-PCS; 2016-11-08)
PROC: B548ZZA Ultrasonography of Superior Vena Cava, Guidance (ICD-10-PCS; 2016-11-08)
DX: J18.9 Pneumonia, unspecified organism (principal); I82.509 Chronic embolism and thrombosis of unspecified deep veins of unspecified lower extremity; I27.82 Chronic pulmonary embolism; E87.6 Hypokalemia; E83.42 Hypomagnesemia; I10 Essential (primary) hypertension; E78.5 Hyperlipidemia, unspecified; G30.1 Alzheimer's disease with late onset; F02.80 Dementia in other diseases classified elsewhere, unspecified severity, without behavioral disturbance, psychotic disturbance, mood disturbance, and anxiety; E03.9 Hypothyroidism, unspecified; M19.90 Unspecified osteoarthritis, unspecified site; R14.0 Abdominal distension (gaseous); Z79.01 Long term (current) use of anticoagulants; Z79.899 Other long term (current) drug therapy; Z86.11 Personal history of tuberculosis; Z90.49 Acquired absence of other specified parts of digestive tract; Z90.710 Acquired absence of both cervix and uterus; Z88.1 Allergy status to other antibiotic agents
CPT/HCPCS: 36415; 36569; 71010; 71020; 74022; 76937; 77001; 80048; 80053; 81001; 83735; 83880; 85025; 85610; 87040; 87070; 87086; 87205; 93005; 93010; 94640; 99284; C1769; G8978-GP; G8979-GP; J0456; J0696; J1642; J2060; J2920; J3475; J3490; J7030; J7060; J7620